=== PATIENT | male | born 1975 | race Caucasian/White ===

== ENCOUNTER 2017-11-07 13:14 | Inpatient (IN) | payer OTHER ==
[2017-11-07 17:00] VITALS: BMI 29.8
--- NOTE | 2017-11-07 21:24 | HP ---
CIWA Score - CIWA Score Nausea/Vomitin-Mild Nausea/No Vomiting Muscle Tremors: 4-Moderate,w/Arms Extend Anxiety: 4-Mod. Anxious/Guarded Agitation: 4-Moderately Restless Paroxysmal Sweats: 3 Orientation: 0-Oriented Tacttile Disturbances: 0-None Auditory Disturbances: 0-None Visual Disturbances: 0-None Headache: 0-None Present CIWA-Ar Total Score: 16 Admission ROS BHS - HPI Chief Complaint: SEEKING DETOX FRO ALCOHOLISM W/ C/O WITHDRAWAL SX'S Allergies/Adverse Reactions: Allergies Allergy/AdvReac Type Severity Reaction Status Date / Time No Known Allergies Allergy Verified 11/07/17 20:25 History of Present Illness: 42 Y.O. MALE WITH ALCOHOLISM HERE FOR DETOX WITH C/O WITHDRAWAL SX'S CIWA 16. CLIENT IS SELF REFERRED. KNOWN TO OTHER DETOX CENTERS. STATES LAST ADMISSION OVER A MONTH AGO. REPORTS LONGEST CLEAN TIME 6 MONTHS AGO. REPORTS HX/O WITHDRAWAL SEIZURES. LAST EPISODE 15 MONTHS AGO, [facility] OUT[facility]. DENIES C.P., SOB, AVH, PAST/PRESENT SI/HI. DENIES LEGALS PMHX- HX/O RLE DVT,GERD PSYCH- ANXIETY Exam Limitations: No Limitations - Ebola screening Have you traveled outside of the country in the last 21 days: No Have you had contact with anyone from an Ebola affected area: No Have you been sick,other than usual withdrawal symptoms: No Do you have a fever: No - Review of Systems Constitutional: Chills, Loss of Appetite, Night Sweats, Changes in sleep EENT: reports: No Symptoms Reported Respiratory: reports: No Symptoms reported Cardiac: reports: No Symptoms Reported GI: reports: Diarrhea, Nausea, Poor Appetite, Poor Fluid Intake : reports: No Symptoms Reported Musculoskeletal: reports: Joint Pain (BOTH KNEE CHRONIC) Integumentary: reports: Flushing, Sweating Neuro: reports: Seizure (ALCOHOL WITHDRAWAL) Endocrine: reports: No Symptoms Reported Hematology: reports: Blood Clots (HX/O RLE DVT) Psychiatric: reports: Anxious, Depressed Other Systems: Reviewed and Negative Patient History - Patient Medical History Hx Anemia: No Hx Asthma: No Hx Chronic Obstructive Pulmonary Disease (COPD): No Hx Cancer: No Hx Cardiac Disorders: No Hx Congestive Heart Failure: No Hx Hypertension: No Hx Hypercholesterolemia: No Hx Pacemaker: No HX Cerebrovascular Accident: No Hx Seizures: Yes (HX/O WITHDRAWAL SZ) Hx Dementia: No Hx Diabetes: No Hx Gastrointestinal Disorders: No Hx Liver Disease: No Hx Genitourinary Disorders: No Hx Sexually Transmitted Disorders: No Hx Renal Disease (ESRD): No Hx Thyroid Disease: No Hx Human Immunodeficiency Virus (HIV): No Hx Hepatitis C: No Hx Depression: Yes Hx Suicide Attempt: No Hx Bipolar Disorder: No Hx Schizophrenia: No Other Medical History: ANXIETY - Patient Surgical History Past Surgical History: No Hx Neurologic Surgery: No Hx Cataract Extraction: No Hx Cardiac Surgery: No Hx Lung Surgery: No Hx Breast Surgery: No Hx Breast Biopsy: No Hx Abdominal Surgery: No Hx Appendectomy: No Hx Cholecystectomy: No Hx Genitourinary Surgery: No Hx Section: No Hx Orthopedic Surgery: No Anesthesia Reaction: No - PPD History Previous Implant?: Yes Documented Results: Negative w/o proof Implanted On Prior R Admission?: No PPD to be Administered?: Yes - Smoking Cessation Smoking history: Current every day smoker Have you smoked in the past 12 months: Yes Aproximately how many cigarettes per day: 10 Cigars Per Day: 0 Hx Chewing Tobacco Use: No Initiated information on smoking cessation: Yes 'Breaking Loose' booklet given: 11/07/17 - Substance & Tx. History Hx Alcohol Use: Yes Hx Substance Use: Yes Substance Use Type: Alcohol Hx Substance Use Treatment: Yes (DOES NOT RECALL) - Substances Abused Alcohol Route: Oral Frequency: Daily Amount used: LIQUOR- 3 PINTS, BEER- 2 SIX PACK Age of first use: 15 Date of Last Use: 11/07/17 Family Disease History - Family Disease History Family Disease History: Other: Mother (BLODD CLOTTS) Admission Physical Exam S - Vital Signs Vital Signs: Vital Signs - 24 hr 11/07/17 16:57 Temperature 98.9 F Pulse Rate 101 H Respiratory 18 Rate Blood Pressure 155/100 - Physical General Appearance: Yes: Moderate Distress, Alcohol on Breath, Intoxicated, Tremorous, Irritable, Sweating, Anxious HEENTM: Yes: EOMI, Normocephalic, TENA, Pharynx Normal Respiratory: Yes: Chest Non-Tender, Lungs Clear, Normal Breath Sounds, No Respiratory Distress, No Accessory Muscle Use Neck: Yes: No masses,lesions,Nodules, Supple, Trachea in good position Breast: Yes: Breast Exam Deferred Cardiology: Yes: Regular Rhythm, S1, S2, Tachycardia Abdominal: Yes: Normal Bowel Sounds, Non Tender, Soft Genitourinary: Yes: Other (NO C/O) Back: Yes: Normal Inspection Musculoskeletal: Yes: full range of Motion, Gait Steady Extremities: Yes: Normal Range of Motion, Non-Tender, Tremors Neurological: Yes: Alert, Motor Strength 5/5, Depressed Affect Integumentary: Yes: Warm, Other (FLUSHED) Lymphatic: Yes: Within Normal Limits - Diagnostic (1) Alcohol dependence with uncomplicated withdrawal Current Visit: Yes Status: Acute (2) Nicotine dependence Current Visit: Yes Status: Chronic Qualifiers: Nicotine product type: cigarettes Substance use status: uncomplicated Qualified Code(s): F17.210 - Nicotine dependence, cigarettes, uncomplicated (3) Alcohol withdrawal seizure Current Visit: Yes Status: Suspected Comment: HISTORY (4) Substance induced mood disorder Current Visit: Yes Status: Suspected (5) At risk for dehydration due to poor fluid intake Current Visit: Yes Status: Acute Cleared for Admission [facility] - Detox or Rehab [facility] Level of Care: Medically Managed Detox Regimen/Protocol: [facility] for Rehab Admission: No [facility] Breath Alcohol Content Breath Alcohol Content: 0.193 Urine Drug Screen - Results Drug Screen Negative: No Urine Drug Screen Results: BZO-Benzodiazepines
[2017-11-07] MEDS ORDERED: IBUPROFEN 400 MG TABLET (FP) PO PRN (21:29)
[2017-11-07] MEDS ORDERED: LOPERAMIDE HCL 2 MG CAPSULE PO PRN (21:29)
[2017-11-07] MEDS ORDERED: MAGNESIUM CITRATE 300 ML BOTTLE PO PRN (21:29)
[2017-11-07] MEDS ORDERED: guaiFENesin/D-METHORPHAN HB 10 ML UNIT-DOSE CUPS PO PRN (21:29)
[2017-11-07] MEDS ORDERED: MAGNESIUM HYDROX 2400MG/30ML ORAL SUSPENSION 30 ML CUP PO PRN (21:29)
[2017-11-07] MEDS ORDERED: NICOTINE POLACRILEX 2 MG GUM BC PRN (21:29)
[2017-11-07] MEDS ORDERED: P-EPHED 60MG/TRIPROLIDI 2.5MG TABLET PO PRN (21:29)
[2017-11-07] MEDS ORDERED: MENTHOL/PHENOL 1 EACH UD MM PRN (21:29)
[2017-11-07] MEDS ORDERED: ACETAMINOPHEN 325 MG TABLET (FP) PO PRN (21:29)
[2017-11-07] MEDS ORDERED: hydrOXYzine PAMOATE 50 MG CAPSULE (FP) PO PRN (21:29)
[2017-11-07] MEDS ORDERED: cloNIDine HCL 0.1 MG TABLET PO PRN (21:41)
[2017-11-07] MEDS: chlordiazePOXIDE HCL 25 MG CAPSULE PO SCH (22:41)
[2017-11-07] MEDS: THIAMINE HCL 100 MG TABLET (FP) PO SCH (22:41)
[2017-11-07] MEDS: MELATONIN 5 MG TABLETS PO PRN (22:43)
[2017-11-08] MEDS: chlordiazePOXIDE HCL 25 MG CAPSULE PO SCH ×4 (06:31→22:06)
[2017-11-08 10:15] LABS: HEMOGLOBIN 14.1 GM/dL (11.7-16.9); MCH 30.2 pg (25.7-33.7); MCHC 33.5 g/dl (32.0-35.9); MEAN CELL VOLUME 90.2 fl (80-96); MEAN PLT VOLUME 10.7 fl (7.5-11.1); PLATELET COUNT 117 K/MM3 (134-434); RBC 4.66 M/mm3 (4.00-5.60); RDW 13.9 % (11.9-15.9); WHITE BLOOD COUNT 4.8 K/mm3 (4.0-10.0)
[2017-11-08] MEDS: NICOTINE 14 MG/24 HOURS TOPICAL PATCH TD SCH (10:18)
[2017-11-08] MEDS: PRENATAL VITAMINS W/ FOLIC ACID TABLET (FP) PO SCH (10:19)
[2017-11-08 10:30] LABS: CHLORIDE 106 mmol/L (98-107); POTASSIUM 4.2 mmol/L (3.5-5.1); SODIUM 145 mmol/L (136-145)
[2017-11-08 10:56] LABS: ALBUMIN 3.3 g/dl (3.4-5.0); ALK PHOS 111 U/L (45-117); ANION GAP 10 MMOL/L (8-16); BILIRUBIN,TOTAL 0.5 mg/dL (0.2-1); BLOOD UREA NITROGEN 13 mg/dL (7-18); CALCIUM 8.6 mg/dL (8.5-10.1); CO2 29 mmol/L (21-32); CREATININE 0.8 mg/dL (0.55-1.3); GLUCOSE,RANDOM 94 mg/dL (74-106); SGOT/AST 20 U/L (15-37); SGPT/ALT 23 U/L (13-61)
[2017-11-08] MEDS: chlordiazePOXIDE HCL 25 MG CAPSULE PO PRN (14:39)
--- NOTE | 2017-11-08 15:50 | PN ---
S CIWA - CIWA Score Nausea/Vomitin-Mild Nausea/No Vomiting Muscle Tremors: 4-Moderate,w/Arms Extend Anxiety: 1-Mildly Anxious Agitation: 1-Slight > Activity Paroxysmal Sweats: 1-Minimal Palms Moist Orientation: 0-Oriented Tacttile Disturbances: 0-None Auditory Disturbances: 0-None Visual Disturbances: 0-None Headache: 0-None Present CIWA-Ar Total Score: 8 BHS Progress Note (SOAP) Subjective: States still having shakes. Some nausea w/ diarrhea. States stools are watery brown. Feeling some anxiety and restlessness. Objective: A&O x 3. Abd S/NT/BS hyperactive. Tremors of hands noted uon extension. Facial perspiration present. Vital Signs 11/08/17 11/08/17 11/08/17 08:00 08:30 09:00 Temperature Pulse Rate 65 72 67 Respiratory 18 18 Rate Blood Pressure 11/08/17 11/08/17 11/08/17 09:14 09:30 10:00 Temperature 98.0 F Pulse Rate 68 69 70 Respiratory 18 18 18 Rate Blood Pressure 133/85 11/08/17 11/08/17 11/08/17 10:30 11:00 11:30 Temperature Pulse Rate 71 71 69 Respiratory 18 18 18 Rate Blood Pressure 11/08/17 11/08/17 11/08/17 12:00 12:30 13:00 Temperature Pulse Rate 78 80 79 Respiratory 18 16 16 Rate Blood Pressure 11/08/17 11/08/17 11/08/17 13:30 13:48 14:00 Temperature 97.8 F Pulse Rate 76 78 70 Respiratory 16 16 18 Rate Blood Pressure 131/82 11/08/17 11/08/17 11/08/17 14:30 15:00 15:30 Temperature Pulse Rate 74 72 71 Respiratory 18 18 Rate Blood Pressure Lab Results WBC 4.8 K/mm3 (4.0-10.0) 11/08/17 07:50 RBC 4.66 M/mm3 (4.00-5.60) 11/08/17 07:50 Hgb 14.1 GM/dL (11.7-16.9) 11/08/17 07:50 Hct 42.0 % (35.4-49) 11/08/17 07:50 MCV 90.2 fl (80-96) 11/08/17 07:50 MCHC 33.5 g/dl (32.0-35.9) 11/08/17 07:50 RDW 13.9 % (11.9-15.9) 11/08/17 07:50 Plt Count 117 K/MM3 (134-434) L 11/08/17 07:50 Sodium 145 mmol/L (136-145) 11/08/17 07:50 Potassium 4.2 mmol/L (3.5-5.1) 11/08/17 07:50 Chloride 106 mmol/L (98-107) 11/08/17 07:50 Carbon Dioxide 29 mmol/L (21-32) 11/08/17 07:50 Anion Gap 10 MMOL/L (8-16) 11/08/17 07:50 BUN 13 mg/dL (7-18) 11/08/17 07:50 Creatinine 0.8 mg/dL (0.55-1.3) 11/08/17 07:50 Random Glucose 94 mg/dL (74-106) 11/08/17 07:50 Calcium 8.6 mg/dL (8.5-10.1) 11/08/17 07:50 Labs reviewed. Assessment: Withdrawal symptoms Plan: Continue detox.
--- NOTE | 2017-11-08 16:45 | EKG ---
Test Reason : Blood Pressure : / mmHG Vent. Rate : 099 BPM Atrial Rate : 099 BPM P-R Int : 162 ms QRS Dur : 080 ms QT Int : 350 ms P-R-T Axes : 011 051 064 degrees QTc Int : 449 ms NORMAL SINUS RHYTHM NORMAL ECG NO PREVIOUS ECGS AVAILABLE Confirmed by Jase Julio ([id number]) on 11/08/2017 4:45:09 PM Referred By: Confirmed By:Jase Julio
--- NOTE | 2017-11-08 17:30 | CONSULT ---
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 Substance Abuse History: Confirmed by the patient in this interview.Details in current [facility] report : Smoking history: Current every day smoker. Have you smoked in the past 12 months: Yes. Aproximately how many cigarettes per day: 10. Cigars Per Day: 0. Hx Chewing Tobacco Use: No. Initiated information on smoking cessation: Yes. 'Breaking Loose' booklet given: 11/07/17. - Substance & Tx. History. Hx Alcohol Use: Yes. Hx Substance Use: Yes. Substance Use Type : Alcohol. Hx Substance Use Treatment: Yes (DOES NOT RECALL). - Substances Abused. Alcohol. Route: Oral. Frequency: Daily. Amount used: LIQUOR- 3 PINTS, BEER- 2 SIX PACK. Age of first use: 15. Date of Last Use: 11/07/17 Medical History: GERD,antecedent of withdrawal-related seizures and a history of DVT (deep vein thrombosis). 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 Physical/Sexual Abuse/Trauma History: Stressors : homelessness,estrangement from relatives,no support network,suicide of girlfriend, of mother (four years ago),unemployment,no income and addictions. Additional Comment: Urine Drug Screen Results: BZO-Benzodiazepines.Noted. Mental Status Exam - Mental Status Exam Alert and Oriented to: Time, Place, Person Cognitive Function: Good Patient Appearance: Well Groomed (obese,unshaven) Mood: Nervous, Withdrawn, Anxious Affect: Mood Congruent, Labile Patient Behavior: Inappropriate (uses profane language), Fatigued, Cooperative Speech Pattern: Clear Voice Loudness: Normal Thought Process: Intact, Goal Oriented Thought Disorder: Not Present Hallucinations: Denies Suicidal Ideation: Denies Homicidal Ideation: Denies Insight/Judgement: Poor Sleep: Poorly, Difficulty falling asleep Appetite: Good Muscle strength/Tone: Normal Gait/Station: Normal Psychiatric Findings - Problem List ([place] 1, 2,3) (1) Alcohol dependence with uncomplicated withdrawal Current Visit: Yes Status: Acute (2) Substance induced mood disorder Current Visit: Yes Status: Acute (3) Nicotine dependence Current Visit: Yes Status: Acute Qualifiers: Nicotine product type: cigarettes Substance use status: uncomplicated Qualified Code(s): F17.210 - Nicotine dependence, cigarettes, uncomplicated (4) Insomnia Current Visit: Yes Status: Acute - Initial Treatment Plan Initial Treatment Plan: Psychoeducation.Sleep hygiene.Detoxification in progress.Insomnia is addressed with melatonin 5 mg po hs prn (patient's request) .Side effects/benefits discussed with the patient.Agreement (verbal) : given.Observation.
[2017-11-08] MEDS: MAG HYDROX/AL HYDROX/SIMETH 30 ML UNIT-DOSE CUP PO PRN (19:22)
[2017-11-08] MEDS: MELATONIN 5 MG TABLETS PO PRN (22:06)
[2017-11-08] MEDS: THIAMINE HCL 100 MG TABLET (FP) PO SCH (22:06)
[2017-11-09] MEDS: chlordiazePOXIDE HCL 25 MG CAPSULE PO SCH ×3 (06:05→17:32)
[2017-11-09] MEDS: chlordiazePOXIDE HCL 25 MG CAPSULE PO PRN ×2 (08:22→12:46)
[2017-11-09] MEDS: NICOTINE 14 MG/24 HOURS TOPICAL PATCH TD SCH (10:27)
[2017-11-09] MEDS: PRENATAL VITAMINS W/ FOLIC ACID TABLET (FP) PO SCH (10:28)
--- NOTE | 2017-11-09 10:53 | PN ---
[facility] CIWA - CIWA Score Nausea/Vomitin (DIARRHEA) Muscle Tremors: 4-Moderate,w/Arms Extend Anxiety: 4-Mod. Anxious/Guarded Agitation: 3 Paroxysmal Sweats: 2 Orientation: 0-Oriented Tacttile Disturbances: 0-None Auditory Disturbances: 0-None Visual Disturbances: 0-None Headache: 0-None Present CIWA-Ar Total Score: 15 BHS Progress Note (SOAP) Subjective: PT C/O DIARRHEA,SWEATS, ANXIETY. Objective: 11/09/17 10:51 Vital Signs 11/09/17 11/09/17 11/09/17 03:30 06:58 09:22 Temperature 96.7 F L 96.2 F L Pulse Rate 60 74 Respiratory 18 18 18 Rate Blood Pressure 105/70 131/84 Laboratory Tests 11/08/17 11/08/17 11/08/17 07:50 07:50 07:50 WBC 4.8 RBC 4.66 Hgb 14.1 Hct 42.0 MCV 90.2 MCH 30.2 MCHC 33.5 RDW 13.9 Plt Count 117 L MPV 10.7 Sodium 145 Potassium 4.2 Chloride 106 Carbon Dioxide 29 Anion Gap 10 BUN 13 Creatinine 0.8 Creat Clearance w eGFR > 60 Random Glucose 94 Calcium 8.6 Total Bilirubin 0.5 AST 20 ALT 23 Alkaline Phosphatase 111 Total Protein 6.0 L Albumin 3.3 L RPR Titer Nonreactive Assessment: 11/09/17 10:51 WITHDRAWAL SX Plan: CONTINUE DETOX IMODIUM PRN; LOMOTIL IF NOT EFFECTIVE.
[2017-11-09] MEDS: THIAMINE HCL 100 MG TABLET (FP) PO SCH (22:13)
[2017-11-09] MEDS: chlordiazePOXIDE 5 MG CAPSULE PO SCH (22:13)
[2017-11-09] MEDS: MELATONIN 5 MG TABLETS PO PRN (22:14)
[2017-11-10 00:52] LABS: URINE APPEARANCE SLCLOUDY; URINE BILIRUBIN NEGATIVE (<2.0 mg/dL); URINE COLOR LTYELLOW; URINE GLUCOSE (UA) NEGATIVE (NEGATIVE); URINE KETONE NEGATIVE (NEGATIVE); URINE LEUK ESTERASE NEGATIVE (NEGATIVE); URINE NITRITE NEGATIVE (NEGATIVE); URINE PROTEIN NEGATIVE (NEGATIVE); URINE UROBILINOGEN NEGATIVE mg/dL (0.2-1.0)
[2017-11-10] MEDS: chlordiazePOXIDE 5 MG CAPSULE PO SCH (05:44)
[2017-11-10 06:15] VITALS: BP 111/64
[2017-11-10 10:03] VITALS: PULSE 61; TEMP 96.8
[2017-11-10] MEDS: PRENATAL VITAMINS W/ FOLIC ACID TABLET (FP) PO SCH (10:14)
[2017-11-10] MEDS: NICOTINE 14 MG/24 HOURS TOPICAL PATCH TD SCH (10:14)
[2017-11-10] MEDS: MAG HYDROX/AL HYDROX/SIMETH 30 ML UNIT-DOSE CUP PO PRN (10:15)
--- NOTE | 2017-11-10 10:24 | PN ---
[facility] Progress Note (SOAP) Subjective: DETOX PROCEEDING PER PROTOCOL. PT REFERRED TO [facility] PROGRAM AFTERCARE AND WILL FOLLOW UP THIS MORNING. PT REPORTS HE HAS NO PMD BUT UTILIZES ANY HOSPITAL CLOSE TO HIM/PROGRAMS HE ENGAGES IN. Objective: 11/10/17 10:22 Vital Signs 11/10/17 11/10/17 11/10/17 03:30 06:15 09:53 Temperature 97.2 F L 96.8 F L Pulse Rate 58 L 61 Respiratory 18 18 18 Rate Blood Pressure 111/64 Laboratory Tests 11/08/17 11/08/17 11/08/17 07:50 07:50 07:50 WBC 4.8 RBC 4.66 Hgb 14.1 Hct 42.0 MCV 90.2 MCH 30.2 MCHC 33.5 RDW 13.9 Plt Count 117 L MPV 10.7 Sodium 145 Potassium 4.2 Chloride 106 Carbon Dioxide 29 Anion Gap 10 BUN 13 Creatinine 0.8 Creat Clearance w eGFR > 60 Random Glucose 94 Calcium 8.6 Total Bilirubin 0.5 AST 20 ALT 23 Alkaline Phosphatase 111 Total Protein 6.0 L Albumin 3.3 L Urine Color Urine Appearance Urine pH Ur Specific [place] Urine Protein Urine Glucose (UA) Urine Ketones Urine Blood Urine Nitrite Urine Bilirubin Urine Urobilinogen Ur Leukocyte Esterase RPR Titer Nonreactive 11/10/17 00:30 WBC RBC Hgb Hct MCV MCH MCHC RDW Plt Count MPV Sodium Potassium Chloride Carbon Dioxide Anion Gap BUN Creatinine Creat Clearance w eGFR Random Glucose Calcium Total Bilirubin AST ALT Alkaline Phosphatase Total Protein Albumin Urine Color Ltyellow Urine Appearance Slcloudy Urine pH 8.0 Ur Specific [place] 1.011 Urine Protein Negative Urine Glucose (UA) Negative Urine Ketones Negative Urine Blood Negative Urine Nitrite Negative Urine Bilirubin Negative Urine Urobilinogen Negative Ur Leukocyte Esterase Negative RPR Titer Assessment: 11/10/17 10:22 MEDICALLY STABLE Plan: D/C PT TODAY FOLLOW UP AT [facility] TODAY FOR AFTERCARE.
--- NOTE | 2017-11-10 10:27 | DS ---
[facility] Detox Discharge Summary Admission Date: 11/07/17 Discharge Date: 11/10/17 - History Present History: Alcohol Dependence Additional Comments: DETOX COMPLETED. ALERT O X 3. NAD. Pertinent Past History: PLEASE SEE DX BELOW - Physical Exam Results Vital Signs: Vital Signs Temperature 96.8 F L 11/10/17 09:53 Pulse Rate 61 11/10/17 09:53 Respiratory Rate 18 11/10/17 09:53 Blood Pressure 111/64 11/10/17 06:15 O2 Sat by Pulse Oximetry (%) Pertinent Admission Physical Exam Findings: WITHDRAWAL SX Vital Signs 11/10/17 11/10/17 11/10/17 03:30 06:15 09:53 Temperature 97.2 F L 96.8 F L Pulse Rate 58 L 61 Respiratory 18 18 18 Rate Blood Pressure 111/64 Laboratory Tests 11/08/17 11/08/17 11/08/17 07:50 07:50 07:50 WBC 4.8 RBC 4.66 Hgb 14.1 Hct 42.0 MCV 90.2 MCH 30.2 MCHC 33.5 RDW 13.9 Plt Count 117 L MPV 10.7 Sodium 145 Potassium 4.2 Chloride 106 Carbon Dioxide 29 Anion Gap 10 BUN 13 Creatinine 0.8 Creat Clearance w eGFR > 60 Random Glucose 94 Calcium 8.6 Total Bilirubin 0.5 AST 20 ALT 23 Alkaline Phosphatase 111 Total Protein 6.0 L Albumin 3.3 L Urine Color Urine Appearance Urine pH Ur Specific [place] Urine Protein Urine Glucose (UA) Urine Ketones Urine Blood Urine Nitrite Urine Bilirubin Urine Urobilinogen Ur Leukocyte Esterase RPR Titer Nonreactive 11/10/17 00:30 WBC RBC Hgb Hct MCV MCH MCHC RDW Plt Count MPV Sodium Potassium Chloride Carbon Dioxide Anion Gap BUN Creatinine Creat Clearance w eGFR Random Glucose Calcium Total Bilirubin AST ALT Alkaline Phosphatase Total Protein Albumin Urine Color Ltyellow Urine Appearance Slcloudy Urine pH 8.0 Ur Specific [place] 1.011 Urine Protein Negative Urine Glucose (UA) Negative Urine Ketones Negative Urine Blood Negative Urine Nitrite Negative Urine Bilirubin Negative Urine Urobilinogen Negative Ur Leukocyte Esterase Negative RPR Titer - Treatment Hospital Course: Detox Protocol Followed, Detoxed Safely, Responded well, Discharged Condition Good, Rehab Referral Accepted Patient has Accepted a Rehab Referral to: [facility] - Medication Discharge Medications: Ambulatory Orders Gabapentin [Gralise] 600 mg PO TID 11/07/17 - Diagnosis (1) Alcohol dependence with uncomplicated withdrawal Current Visit: Yes Status: Acute (2) At risk for dehydration due to poor fluid intake Current Visit: Yes Status: Acute (3) Nicotine dependence Current Visit: Yes Status: Acute Qualifiers: Nicotine product type: cigarettes Substance use status: in withdrawal Qualified Code(s): F17.213 - Nicotine dependence, cigarettes, with withdrawal (4) Alcohol withdrawal seizure Current Visit: Yes Status: Suspected Qualifiers: Complication of substance-induced condition: with unspecified complication Qualified Code(s): F10.239 - Alcohol dependence with withdrawal, unspecified; R56.9 - Unspecified convulsions - AMA Did Patient Leave Against Medical Advice: No
[2017-11-10] MEDS ORDERED: chlordiazePOXIDE HCL 10 MG CAPSULE PO SCH ×2 (11:00→23:00)
== END 2017-11-10 11:38 | disposition home or self-care (01) | DRG 775 ==
LOC: YASAS 13:14 → Y3N 21:11
PROC: HZ2ZZZZ Detoxification Services for Substance Abuse Treatment (ICD-10-PCS; principal; 2017-11-07)
DX: F10.230 Alcohol dependence with withdrawal, uncomplicated (principal); F19.24 Other psychoactive substance dependence with psychoactive substance-induced mood disorder; F41.9 Anxiety disorder, unspecified; G47.00 Insomnia, unspecified; Z86.718 Personal history of other venous thrombosis and embolism; Z91.89 Other specified personal risk factors, not elsewhere classified; Z86.69 Personal history of other diseases of the nervous system and sense organs; Z59.0 Homelessness
CPT/HCPCS: 36415; 80053; 81003; 85027; 86593; 93005; 93010; J0735

== ENCOUNTER 2018-04-07 14:41 | Inpatient (IN) | payer OTHER ==
[2018-04-07 15:05] VITALS: BMI 28.8
--- NOTE | 2018-04-07 20:06 | HP ---
CIWA Score Nausea/Vomitin-Mild Nausea/No Vomiting Muscle Tremors: 4-Moderate,w/Arms Extend Anxiety: 6 Agitation: 4-Moderately Restless Paroxysmal Sweats: 4-Forehead w/Sweat Beads Orientation: 4Disoriented Place/Person Tacttile Disturbances: 0-None Auditory Disturbances: 0-None Visual Disturbances: 3-Moderate Sensitivity Headache: 0-None Present CIWA-Ar Total Score: 26 - Admission Criteria [facility]ASAS Guidelines: Admission for Medically Managed Detox: Requires at least one of the followin. CIWA greater than 12 2. Seizures within the past 24 hours 3. Delirium tremens within the past 24 hours 4. Hallucinations within the past 24 hours 5. Acute intervention needed for co occurring medical disorder 6. Acute intervention needed for co occurring psychiatric disorder 7. Severe withdrawal that cannot be handled at a lower level of care (continued vomiting, continued diarrhea, abnormal vital signs) requiring intravenous medication and/or fluids 8. Patient presents the following: CIWA greater than 12, Seizures, delirium tremens or hallucinations in the past 12 hours Admission Criteria Met: Admission criteria met Admission ROS [facility] - HPI Allergies/Adverse Reactions: Allergies Allergy/AdvReac Type Severity Reaction Status Date / Time No Known Allergies Allergy Verified 11/07/17 20:25 History of Present Illness: pt here requesting detox from etoh use . poor historian due to current intoxication . Previous visit at this facility October 2017 , when questioned about amount and frequency of use he reports " a lot " Oriented to self . Exam Limitations: Clinical Condition, Intoxication, Altered Mental Status (due to intoxication) - Ebola screening Have you traveled outside of the country in the last 21 days: No Have you had contact with anyone from an Ebola affected area: No Have you been sick,other than usual withdrawal symptoms: No Do you have a fever: No - Review of Systems Constitutional: See HPI EENT: reports: See HPI Respiratory: reports: See HPI Cardiac: reports: See HPI GI: reports: See HPI : reports: See HPI Musculoskeletal: reports: See HPI Integumentary: reports: See HPI Neuro: reports: Seizure, Weakness, Unsteady Gait Psychiatric: reports: Agitated, Anxious, Disorientated Patient History - Patient Medical History Hx Anemia: No Hx Asthma: No Hx Chronic Obstructive Pulmonary Disease (COPD): No Hx Cancer: No Hx Cardiac Disorders: No Hx Congestive Heart Failure: No Hx Hypertension: No Hx Hypercholesterolemia: No Hx Pacemaker: No HX Cerebrovascular Accident: No Hx Seizures: Yes (HX/O WITHDRAWAL SZ) Hx Dementia: No Hx Diabetes: No Hx Gastrointestinal Disorders: No Hx Liver Disease: No Hx Genitourinary Disorders: No Hx Sexually Transmitted Disorders: No Hx Renal Disease (ESRD): No Hx Thyroid Disease: No Hx Human Immunodeficiency Virus (HIV): No Hx Hepatitis C: No Hx Depression: Yes Hx Suicide Attempt: No Hx Bipolar Disorder: No Hx Schizophrenia: No - Patient Surgical History Past Surgical History: No Hx Neurologic Surgery: No Hx Cataract Extraction: No Hx Cardiac Surgery: No Hx Lung Surgery: No Hx Breast Surgery: No Hx Breast Biopsy: No Hx Abdominal Surgery: No Hx Appendectomy: No Hx Cholecystectomy: No Hx Genitourinary Surgery: No Hx Section: No Hx Orthopedic Surgery: No Anesthesia Reaction: No - PPD History Date: 11/09/17 - Smoking Cessation Smoking history: Current every day smoker Have you smoked in the past 12 months: Yes Aproximately how many cigarettes per day: 10 Cigars Per Day: 0 Hx Chewing Tobacco Use: No Initiated information on smoking cessation: No Family Disease History - Family Disease History Family Disease History: Other: Mother (BLOOD CLOTTS) Admission Physical Exam BHS - Vital Signs Vital Signs: Vital Signs - 24 hr 04/07/18 15:00 Pulse Rate 96 H Respiratory 20 Rate Blood Pressure 151/94 - Physical General Appearance: Yes: Disheveled, Intoxicated, Sweating, Anxious, Other ( disoriented) HEENTM: Yes: Hearing grossly Normal, Normocephalic, Normal Voice, Other ( difficulty following commands due to intoxication.) Respiratory: Yes: Chest Non-Tender, Lungs Clear, Normal Breath Sounds Neck: Yes: No masses,lesions,Nodules, Trachea in good position Cardiology: Yes: Regular Rhythm, Regular Rate, S1, S2, Tachycardia Abdominal: Yes: Normal Bowel Sounds, Non Tender, Soft Genitourinary: Yes: Within Normal Limits Back: Yes: Normal Inspection Musculoskeletal: Yes: Muscle weakness, Other (unsteady gait) Extremities: Yes: Normal Capillary Refill, Non-Tender, Other Neurological: Yes: Motor Strength 5/5, Disoriented Integumentary: Yes: Normal Color - Diagnostic (1) Alcohol dependence with acute alcoholic intoxication with complication Current Visit: Yes Status: Acute (2) At risk for dehydration due to poor fluid intake Current Visit: No Status: Acute (3) Nicotine dependence Current Visit: No Status: Chronic Qualifiers: Nicotine product type: cigarettes (4) Alcohol withdrawal seizure Current Visit: No Status: Suspected Qualifiers: Complication of substance-induced condition: with unspecified complication Qualified Code(s): F10.239 - Alcohol dependence with withdrawal, unspecified; R56.9 - Unspecified convulsions Comment: HISTORY BHS Breath Alcohol Content Breath Alcohol Content: 0.167 Urine Drug Screen - Results Drug Screen Negative: Yes Inpatient Rehab Admission - Rehab Decision to Admit Inpatient rehab admission?: No
[2018-04-07] MEDS ORDERED: ACETAMINOPHEN 325 MG TABLET (FP) PO PRN (20:20)
[2018-04-07] MEDS ORDERED: guaiFENesin/D-METHORPHAN HB 10 ML UNIT-DOSE CUPS PO PRN (20:20)
[2018-04-07] MEDS ORDERED: IBUPROFEN 400 MG TABLET (FP) PO PRN (20:20)
[2018-04-07] MEDS ORDERED: MENTHOL/PHENOL 1 EACH UD MM PRN (20:20)
[2018-04-07] MEDS ORDERED: MAGNESIUM HYDROX 2400MG/30ML ORAL SUSPENSION 30 ML CUP PO PRN (20:20)
[2018-04-07] MEDS ORDERED: P-EPHED 60MG/TRIPROLIDI 2.5MG TABLET PO PRN (20:20)
[2018-04-07] MEDS ORDERED: chlordiazePOXIDE HCL 25 MG CAPSULE PO PRN (20:20)
[2018-04-07] MEDS ORDERED: MAG HYDROX/AL HYDROX/SIMETH 30 ML UNIT-DOSE CUP PO PRN (20:20)
[2018-04-07] MEDS ORDERED: NICOTINE POLACRILEX 2 MG GUM BC PRN (20:20)
[2018-04-07] MEDS ORDERED: MAGNESIUM CITRATE 300 ML BOTTLE PO PRN (20:20)
[2018-04-07] MEDS ORDERED: MELATONIN 5 MG TABLETS PO PRN (22:00)
--- NOTE | 2018-04-08 01:28 | PN ---
[facility] Progress Note Note: Patient was admitted earlier by Dr Tanner. He was reported to have fallen three times at the security post while he was being searched prior to going to his unit. The Nursing Roller Setter, Ms. Bueno reports that she notified Dr. Tanner, who instructed her to call the ambulance and send the patient to ER. Patient was subsequently transferred to ER by the nursing cloth mercerizing supervisor.
[2018-04-08] MEDS: chlordiazePOXIDE HCL 25 MG CAPSULE PO SCH ×6 (05:40→22:19)
[2018-04-08] MEDS: THIAMINE HCL 100 MG TABLET (FP) PO SCH ×2 (05:40→22:19)
--- NOTE | 2018-04-08 05:54 | PN ---
[facility] Progress Note Note: At about 4.10AM 1 was notified by the nurse that the patient came back from emergency room via ambulance. The system was down throughout the Hospital to document and initiate orders at the time patient came back. Patient is drowsy and sleeping at this time. Fall protocol #2 initiated.
[2018-04-08] MEDS: PRENATAL VITAMINS W/ FOLIC ACID TABLET (FP) PO SCH (10:21)
[2018-04-08 11:24] LABS: ALBUMIN 3.4 g/dl (3.4-5.0); ALK PHOS 111 U/L (45-117); ANION GAP 8 MMOL/L (8-16); BILIRUBIN,TOTAL 0.5 mg/dL (0.2-1); BLOOD UREA NITROGEN 17 mg/dL (7-18); CALCIUM 7.8 mg/dL (8.5-10.1); CHLORIDE 109 mmol/L (98-107); CO2 27 mmol/L (21-32); CREATININE 0.9 mg/dL (0.55-1.3); GLUCOSE,RANDOM 80 mg/dL (74-106); POTASSIUM 4.4 mmol/L (3.5-5.1); SGOT/AST 47 U/L (15-37); SGPT/ALT 49 U/L (13-61); SODIUM 144 mmol/L (136-145); TOT PROT 6.3 g/dl (6.4-8.2)
[2018-04-08 11:30] LABS: HEMATOCRIT 45.2 % (35.4-49); HEMOGLOBIN 15.6 GM/dL (11.7-16.9); MCH 32.1 pg (25.7-33.7); MCHC 34.6 g/dl (32.0-35.9); MEAN CELL VOLUME 92.8 fl (80-96); PLATELET COUNT 133 K/MM3 (134-434); RBC 4.87 M/mm3 (4.00-5.60); RDW 15.2 % (11.9-15.9); WHITE BLOOD COUNT 7.3 K/mm3 (4.0-10.0)
[2018-04-08] MEDS: chlordiazePOXIDE HCL 25 MG CAPSULE PO PRN ×2 (12:26→19:11)
--- NOTE | 2018-04-08 14:28 | PN ---
[facility] CIWA - CIWA Score Nausea/Vomitin-No Nausea/No Vomiting Muscle Tremors: 2 Anxiety: 4-Mod. Anxious/Guarded Agitation: 0-Normal Activity Paroxysmal Sweats: 3 Orientation: 2-Disoriented Date<2 days Tacttile Disturbances: 0-None Auditory Disturbances: 2-Mild Harshness/Frighten Visual Disturbances: 2-Mild Sensitivity Headache: 0-None Present CIWA-Ar Total Score: 15 S Progress Note (SOAP) Subjective: Hot / Cold Sensations, Sweating, Diarrhea, Tremors. Objective: PATIENT A & O X 2 (UNCERTAIN ABOUT CURRENT DAY / DATE). PATIENT OBSERVED AMBULATING ON UNIT. IN NO ACUTE DISTRESS. PATIENT WAS SEEN AND EVALUATED AT [facility] FOR FALL. CT SCAN NOTED TO BE NEGATIVE BY ER MEDICAL PROVIDER (ACCORDING TO NOTE BY NADER ALEXANDRE MD) AND PATIENT D/C'D TO RETURN TO [facility] TO BEGIN DETOX. 04/08/18 14:26 Vital Signs Temperature 98.2 F 04/08/18 12:40 Pulse Rate 84 04/08/18 13:03 Respiratory Rate 20 04/08/18 13:03 Blood Pressure 134/70 04/08/18 12:40 O2 Sat by Pulse Oximetry (%) Laboratory Tests 04/08/18 04/08/18 04/08/18 07:45 07:45 07:45 WBC 7.3 RBC 4.87 Hgb 15.6 Hct 45.2 MCV 92.8 MCH 32.1 MCHC 34.6 RDW 15.2 Plt Count 133 L D MPV 11.0 Sodium 144 Potassium 4.4 Chloride 109 H Carbon Dioxide 27 Anion Gap 8 BUN 17 Creatinine 0.9 Creat Clearance w eGFR > 60 Random Glucose 80 Calcium 7.8 L Total Bilirubin 0.5 AST 47 H ALT 49 Alkaline Phosphatase 111 Total Protein 6.3 L Albumin 3.4 RPR Titer Nonreactive LABS NOTED. 04/08/18 14:29 Assessment: 04/08/18 14:27 WITHDRAWAL SYMPTOMS. THROMBOCYTOPENIA. Plan: CONTINUE DETOX. INCREASE DAILY PO FLUID INTAKE. PRN IMMODIUM PO FOR DIARRHEA.
[2018-04-08] MEDS ORDERED: chlordiazePOXIDE HCL 25 MG CAPSULE PO SCH (23:00)
[2018-04-09] MEDS: chlordiazePOXIDE HCL 25 MG CAPSULE PO SCH ×2 (06:00→10:30)
[2018-04-09] MEDS: PRENATAL VITAMINS W/ FOLIC ACID TABLET (FP) PO SCH (10:30)
[2018-04-09 13:41] VITALS: BP 144/89; PULSE 71; TEMP 96.7
[2018-04-09] MEDS: chlordiazePOXIDE HCL 25 MG CAPSULE PO PRN (14:15)
--- NOTE | 2018-04-09 14:23 | PN ---
S CIWA - CIWA Score Nausea/Vomitin-No Nausea/No Vomiting Muscle Tremors: 3 Anxiety: 2 Agitation: 2 Paroxysmal Sweats: 1-Minimal Palms Moist Orientation: 1-Uncertain about Date Tacttile Disturbances: 0-None Auditory Disturbances: 0-None Visual Disturbances: 0-None Headache: 2-Mild CIWA-Ar Total Score: 11 BHS Progress Note (SOAP) Subjective: denies headache, denies dizziness denies nausea denies vomiting denies pain tremor sweating patient reported that he is taking neurontin for depression last dose "weeks" ago patient can not provide the name of the pharmacy nor the provider who prescribe neurontin for him hold neurontin at the present time psychiatric referral due to history of depression with self destructive behavior by history Objective: 04/09/18 14:26 Vital Signs Temperature 96.7 F L 04/09/18 13:40 Pulse Rate 71 04/09/18 13:40 Respiratory Rate 18 04/09/18 13:40 Blood Pressure 144/89 04/09/18 13:40 O2 Sat by Pulse Oximetry (%) Laboratory Last Values WBC 7.3 K/mm3 (4.0-10.0) 04/08/18 07:45 RBC 4.87 M/mm3 (4.00-5.60) 04/08/18 07:45 Hgb 15.6 GM/dL (11.7-16.9) 04/08/18 07:45 Hct 45.2 % (35.4-49) 04/08/18 07:45 MCV 92.8 fl (80-96) 04/08/18 07:45 MCH 32.1 pg (25.7-33.7) 04/08/18 07:45 MCHC 34.6 g/dl (32.0-35.9) 04/08/18 07:45 RDW 15.2 % (11.9-15.9) 04/08/18 07:45 Plt Count 133 K/MM3 (134-434) L D 04/08/18 07:45 MPV 11.0 fl (7.5-11.1) 04/08/18 07:45 Sodium 144 mmol/L (136-145) 04/08/18 07:45 Potassium 4.4 mmol/L (3.5-5.1) 04/08/18 07:45 Chloride 109 mmol/L (98-107) H 04/08/18 07:45 Carbon Dioxide 27 mmol/L (21-32) 04/08/18 07:45 Anion Gap 8 MMOL/L (8-16) 04/08/18 07:45 BUN 17 mg/dL (7-18) 04/08/18 07:45 Creatinine 0.9 mg/dL (0.55-1.3) 04/08/18 07:45 Creat Clearance w eGFR > 60 (>60) 04/08/18 07:45 Random Glucose 80 mg/dL (74-106) 04/08/18 07:45 Calcium 7.8 mg/dL (8.5-10.1) L 04/08/18 07:45 Total Bilirubin 0.5 mg/dL (0.2-1) 04/08/18 07:45 AST 47 U/L (15-37) H 04/08/18 07:45 ALT 49 U/L (13-61) 04/08/18 07:45 Alkaline Phosphatase 111 U/L (45-117) 04/08/18 07:45 Total Protein 6.3 g/dl (6.4-8.2) L 04/08/18 07:45 Albumin 3.4 g/dl (3.4-5.0) 04/08/18 07:45 RPR Titer Nonreactive (NONREACTIVE) 04/08/18 07:45 lab noted low CA++ Assessment: 04/09/18 14:30 withdrawal sx fall precaution hypocalcemia Plan: continue detox begin oscal
[2018-04-09] MEDS ORDERED: CALCIUM 250MG/VIT-D 125 UNITS 1 COMBO TABLET PO SCH (14:27)
--- NOTE | 2018-04-09 16:00 | DS ---
[facility] Detox Discharge Summary Admission Date: 04/07/18 Discharge Date: 04/09/18 - History Present History: Alcohol Dependence Additional Comments: 42 years old male admitted on 04/07/18 for alcohol withdrawal stabilization insists to leave the detox unit that he preferred return to work on 04/11/18 preferred return home and prepare for work today patient had lunch and showered and feeling better patient is alert no acute distress denies suicidal ideation - Physical Exam Results Vital Signs: Vital Signs Temperature 96.7 F L 04/09/18 13:40 Pulse Rate 71 04/09/18 13:40 Respiratory Rate 18 04/09/18 13:40 Blood Pressure 144/89 04/09/18 13:40 O2 Sat by Pulse Oximetry (%) Pertinent Admission Physical Exam Findings: alcohol withdrawal sx Laboratory Last Values WBC 7.3 K/mm3 (4.0-10.0) 04/08/18 07:45 RBC 4.87 M/mm3 (4.00-5.60) 04/08/18 07:45 Hgb 15.6 GM/dL (11.7-16.9) 04/08/18 07:45 Hct 45.2 % (35.4-49) 04/08/18 07:45 MCV 92.8 fl (80-96) 04/08/18 07:45 MCH 32.1 pg (25.7-33.7) 04/08/18 07:45 MCHC 34.6 g/dl (32.0-35.9) 04/08/18 07:45 RDW 15.2 % (11.9-15.9) 04/08/18 07:45 Plt Count 133 K/MM3 (134-434) L D 04/08/18 07:45 MPV 11.0 fl (7.5-11.1) 04/08/18 07:45 Sodium 144 mmol/L (136-145) 04/08/18 07:45 Potassium 4.4 mmol/L (3.5-5.1) 04/08/18 07:45 Chloride 109 mmol/L (98-107) H 04/08/18 07:45 Carbon Dioxide 27 mmol/L (21-32) 04/08/18 07:45 Anion Gap 8 MMOL/L (8-16) 04/08/18 07:45 BUN 17 mg/dL (7-18) 04/08/18 07:45 Creatinine 0.9 mg/dL (0.55-1.3) 04/08/18 07:45 Creat Clearance w eGFR > 60 (>60) 04/08/18 07:45 Random Glucose 80 mg/dL (74-106) 04/08/18 07:45 Calcium 7.8 mg/dL (8.5-10.1) L 04/08/18 07:45 Total Bilirubin 0.5 mg/dL (0.2-1) 04/08/18 07:45 AST 47 U/L (15-37) H 04/08/18 07:45 ALT 49 U/L (13-61) 04/08/18 07:45 Alkaline Phosphatase 111 U/L (45-117) 04/08/18 07:45 Total Protein 6.3 g/dl (6.4-8.2) L 04/08/18 07:45 Albumin 3.4 g/dl (3.4-5.0) 04/08/18 07:45 RPR Titer Nonreactive (NONREACTIVE) 04/08/18 07:45 lab noted calcium rich food - Treatment Hospital Course: Detox Protocol Followed, Responded well Patient has Accepted a Rehab Referral to: [facility] community self help group - Medication Discharge Medications: Ambulatory Orders Gabapentin [Gralise] 600 mg PO TID 11/07/17 - Diagnosis (1) Alcohol dependence with uncomplicated withdrawal Status: Acute (2) Substance induced mood disorder Status: Suspected (3) Nicotine dependence Status: Acute Qualifiers: Nicotine product type: cigarettes Substance use status: in withdrawal Qualified Code(s): F17.213 - Nicotine dependence, cigarettes, with withdrawal - AMA Did Patient Leave Against Medical Advice: Yes
[2018-04-09] MEDS ORDERED: chlordiazePOXIDE 5 MG CAPSULE PO SCH (23:00)
[2018-04-10] MEDS ORDERED: chlordiazePOXIDE 5 MG CAPSULE PO SCH (05:00)
[2018-04-10] MEDS ORDERED: chlordiazePOXIDE HCL 10 MG CAPSULE PO SCH (23:00)
[2018-04-11] MEDS ORDERED: chlordiazePOXIDE HCL 10 MG CAPSULE PO SCH (05:00)
== END 2018-04-09 15:14 | disposition left against medical advice (07) | DRG 770 ==
LOC: YASAS 14:41 → Y3N 19:48
PROVIDERS: ADMIT Surgery; ATTEND Surgery
PROC: HZ2ZZZZ Detoxification Services for Substance Abuse Treatment (ICD-10-PCS; principal; 2018-04-07)
DX: F10.230 Alcohol dependence with withdrawal, uncomplicated (principal); F10.229 Alcohol dependence with intoxication, unspecified; F19.24 Other psychoactive substance dependence with psychoactive substance-induced mood disorder; E83.51 Hypocalcemia; D69.6 Thrombocytopenia, unspecified; R63.8 Other symptoms and signs concerning food and fluid intake; Z86.69 Personal history of other diseases of the nervous system and sense organs; W18.39XA Other fall on same level, initial encounter; Z91.81 History of falling; Y93.89 Activity, other specified; Y92.238 Other place in hospital as the place of occurrence of the external cause
CPT/HCPCS: 36415; 70450-TC; 71045-TC-FY; 80053; 80307; 82550; 82553; 83735; 84484; 85025; 85027; 86593; 93005; 93010; 96374; 96376; 99282-25

== ENCOUNTER 2018-04-07 22:55 | Emergency (ER) | payer OTHER ==
[2018-04-07] MEDS ORDERED: LORazepam 2 MG/ML SDV VIAL ONE (23:38)
--- NOTE | 2018-04-07 23:59 | PDOC ---
Attending Attestation - HPI HPI: The patient is a 42 year old male, with a significant PMH of alcohol abuse, substance abuse, and withdrawal seizures, who presents to the emergency department today from [facility] via EMS for concern for head contusion s/p fall. Patient is intoxicated, with a CARLITO measured at 167. He fell earlier today , and was sent over for a head CT. Patient admits to drinking approximately two hours ago. He does note that does use cocaine, but has not in the past 48 hours. Patient denies any pain or symptoms at this time, and is demanding to eat. The patient denies chest pain, shortness of breath, headache and dizziness. Denies fever, chills, nausea, vomit, diarrhea and constipation. Denies dysuria, frequency, urgency and hematuria. Allergies: NKA Past surgical history: Social history: No reported PCP: Dr. Ute Maradiaga 04/08/18 01:06 - Physicial Exam PE: GENERAL: +Intoxicated. Awake, alert, and fully oriented, in no acute distress. Speaking in full sentences, answering questions, aware of where he is and who he is speaking to. HEAD: No signs of trauma EYES: PERRLA, EOMI, sclera anicteric, conjunctiva clear ENT: Auricles normal inspection, hearing grossly normal, nares patent, oropharynx clear without exudates. Moist mucosa NECK: Normal ROM, supple, no lymphadenopathy, JVD, or masses LUNGS: Breath sounds equal, clear to auscultation bilaterally. No wheezes, and no crackles HEART: Regular rate and rhythm, normal S1 and S2, no murmurs, rubs or gallops ABDOMEN: Soft, nontender, normoactive bowel sounds. No guarding, no rebound. No masses EXTREMITIES: Normal range of motion, no edema. Normal reflexes. No clubbing or cyanosis. No cords, erythema, or tenderness NEUROLOGICAL: +Unsteady gait secondary to intoxication. No tremors. Normal reflexes. Cranial nerves II through XII grossly intact. Normal speech. SKIN: Warm, Dry, normal turgor, no rashes or lesions noted. 04/08/18 01:08 - Medical Decision Making Documentation prepared by ALEXIS Quinones, acting as medical record coder for Mary Ayers MD. 04/08/18 01:08 <Clara Castro - Last Filed: 04/08/18 01:06> - Resident Resident Name: Artemio Hale - ED Attending Attestation I have performed the following: I have examined & evaluated the patient, The case was reviewed & discussed with the resident, I agree w/resident's findings & plan - Medical Decision Making 04/08/18 00:17 Pt received 4mg ativan IVP in the ER. He has no tremors in the ER; he is not sweating. He is oriented to place and person. He is not answering time quesitons. He is calm and speaking to us clearly. He has slight slurring of speech. He drinks alcohol. He sometimes sniffs cocaine, but has not sniffed in a long time. 04/08/18 02:15 Pt's alcohol level is 380s 04/08/18 04:49 Pt was hydrated with 1L NSS; given ativan 4mg IV and librium 100mg. CT head is normal 04/08/18 22:53 Pt was cleared medically and he was sent back to [facility] for detox. I spoke to the PA/MACHINE SPECIALIST there. <Mary Ayers - Last Filed: 04/08/18 22:53>
[2018-04-08] MEDS ORDERED: LORazepam 2 MG/ML SDV VIAL ONE (00:02)
[2018-04-08] MEDS ORDERED: chlordiazePOXIDE HCL 25 MG CAPSULE PO ONE (00:14)
[2018-04-08] MEDS ORDERED: chlordiazePOXIDE HCL 25 MG CAPSULE ONE (00:22)
[2018-04-08 00:42] LABS: BASO % 0.7 % (0-2.0); EOS % 2.7 % (0-4.5); HEMATOCRIT 51.9 % (35.4-49); HEMOGLOBIN 17.7 GM/dL (11.7-16.9); LYMPH % 32.8 % (8-40); MCH 31.6 pg (25.7-33.7); MCHC 34.2 g/dl (32.0-35.9); MEAN CELL VOLUME 92.4 fl (80-96); MEAN PLT VOLUME 10.9 fl (7.5-11.1); MONO % 8.6 % (3.8-10.2); NEUT % 55.2 % (42.8-82.8); PLATELET COUNT 180 K/MM3 (134-434); RBC 5.61 M/mm3 (4.00-5.60); WHITE BLOOD COUNT 9.8 K/mm3 (4.0-10.0)
--- NOTE | 2018-04-08 00:53 | PDOC ---
History of Present Illness - General Stated Complaint: Alcohol intoxication Time Seen by Provider: 04/07/18 23:34 History Source: Patient Exam Limitations: No Limitations - History of Present Illness Initial Comments: 04/08/18 00:48 Patient is a 42M with history of alcohol abuse and withdrawal seizure [facility] for evaluation after falling multiple times. Patient fell because of an unsteady gait due to intoxication. Patient is intoxicated and not able to give proper history, is also agitated but redirectable. Asking for a sandwich. Denies pain. Denies fevers, chills, nauea, vomiting. Denies chest pain and abdominal pain. Past History - Past Medical History Allergies/Adverse Reactions: Allergies Allergy/AdvReac Type Severity Reaction Status Date / Time No Known Allergies Allergy Verified 04/07/18 21:06 Home Medications: Ambulatory Orders Gabapentin [Gralise] 600 mg PO TID 11/07/17 Anemia: No Asthma: No Cancer: No Cardiac Disorders: No CVA: No COPD: No CHF: No Dementia: No Diabetes: No GI Disorders: No Disorders: No HTN: No Hypercholesterolemia: No Kidney Stones: No Liver Disease: No Seizures: Yes (HX/O WITHDRAWAL SZ) Thyroid Disease: No - Surgical History Abdominal Surgery: No Appendectomy: No Cardiac Surgery: No Cholecystectomy: No Lung Surgery: No Neurologic Surgery: No Orthopedic Surgery: No - Reproductive History Testicular Surgery: No - Suicide/Smoking/Psychosocial Hx Smoking History: Current every day smoker Have you smoked in the past 12 months: Yes Number of Cigarettes Smoked Daily: 10 Cigars Per Day: 0 'Breaking Loose' booklet given: 11/07/17 Hx Alcohol Use: Yes Drug/Substance Use Hx: Yes Substance Use Type: Alcohol Hx Substance Use Treatment: No Review of Systems - Review of Systems Comments:: 04/08/18 00:50 GENERAL/CONSTITUTIONAL: No fever or chills. No weakness. HEAD, EYES, EARS, NOSE AND THROAT: No change in vision. No sore throat. CARDIOVASCULAR: No chest pain or shortness of breath RESPIRATORY: No cough, wheezing, or hemoptysis. GASTROINTESTINAL: No nausea, vomiting, diarrhea or constipation. GENITOURINARY: No dysuria, frequency, or change in urination. MUSCULOSKELETAL: No joint or muscle swelling or pain. No neck or back pain. SKIN: No rash NEUROLOGIC: No headache, vertigo, loss of consciousness, or change in strength/ sensation. ENDOCRINE: No increased thirst. No abnormal weight change *Physical Exam - Physical Exam Comments: 04/08/18 00:51 GENERAL: Awake, alert, and fully oriented, in no acute distress, intoxicated HEAD: No signs of trauma, normocephalic, atraumatic EYES: PERRLA, EOMI, sclera anicteric, conjunctiva clear ENT: Auricles normal inspection, hearing grossly normal, nares patent, oropharynx clear without exudates. Moist mucosa NECK: Normal ROM, supple, no lymphadenopathy, JVD, or masses LUNGS: No distress, speaks full sentences, clear to auscultation bilaterally HEART: Regular rate and rhythm, normal S1 and S2, no murmurs, rubs or gallops, peripheral pulses normal and equal bilaterally. ABDOMEN: Soft, nontender, normoactive bowel sounds. No guarding, no rebound. No masses EXTREMITIES: Normal inspection, Normal range of motion, no edema. No clubbing or cyanosis. NEUROLOGICAL: Cranial nerves II through XII grossly intact. Slurred speech, unsteady gait, no focal sensorimotor deficits SKIN: Warm, Dry, normal turgor, no rashes or lesions noted. ED Treatment Course - LABORATORY CBC & Chemistry Diagram: 04/08/18 00:07 04/08/18 00:07 - ADDITIONAL ORDERS Additional order review: 04/08/18 00:07 RBC 5.61 H MCV 92.4 MCHC 34.2 RDW 15.0 MPV 10.9 Neutrophils % 55.2 Lymphocytes % 32.8 Monocytes % 8.6 Eosinophils % 2.7 Basophils % 0.7 - RADIOLOGY Radiology Studies Ordered: Category Date Time Status HEAD CT WITHOUT CONTRAST [CT] Stat CT Scan 04/08/18 00:34 Ordered CHEST X-RAY PORTABLE* [RAD] Stat Radiology 04/08/18 00:30 Taken - Medications Given in the ED: ED Medications Discontinued Medications Generic Name Dose Route Start Last Admin Trade Name Freq PRN Reason Stop Dose Admin Chlordiazepoxide HCl 100 mg 04/08/18 00:14 04/08/18 00:25 Librium - PO 04/08/18 00:15 100 mg ONCE ONE Administration Lorazepam 2 mg 04/07/18 23:50 04/08/18 00:06 Ativan Injection - IVPUSH 04/07/18 23:51 2 mg ONCE ONE Administration Lorazepam 2 mg 04/07/18 23:54 04/08/18 00:06 Ativan Injection - IVPUSH 04/07/18 23:55 2 mg ONCE ONE Administration Medical Decision Making - Medical Decision Making 04/08/18 00:51 Patient is 42M here today with alcohol intoxication and ground level fall. Vitals normal and stable. Walking around ED, no pain. Will evaluate with head ct. Initial labs sent given unknown history as patient was sent to ED. Will follow, likely [facility]. Given ativan 2mg x2 for agitation. 04/08/18 03:[address] normal. Tolerating PO. CBC normal. CMP reassuring. Etoh elevated. Will discharge to [facility]. *DC/Admit/Observation/Transfer Diagnosis at time of Disposition: Alcohol dependence with uncomplicated withdrawal - Discharge Dispostion Disposition: HOME Condition at time of disposition: Good Decision to Admit order: No - Referrals Referrals: Ute Flores [Primary Care Provider] - - Patient Instructions Printed Discharge Instructions: DI for Alcohol Abuse Additional Instructions: Please go to [facility] for management of your alcohol withdrawal. - Post Discharge Activity
[2018-04-08] MEDS ORDERED: SODIUM CHLORIDE 0.9% 500 ML INFUS.BAG IV ONE (01:08)
[2018-04-08 01:14] LABS: ALBUMIN 4.1 g/dl (3.4-5.0); ALK PHOS 131 U/L (45-117); ANION GAP 11 MMOL/L (8-16); BILIRUBIN,TOTAL 0.5 mg/dL (0.2-1); BLOOD UREA NITROGEN 12 mg/dL (7-18); CALCIUM 8.2 mg/dL (8.5-10.1); CHLORIDE 104 mmol/L (98-107); CO2 25 mmol/L (21-32); GLUCOSE,RANDOM 80 mg/dL (74-106); MAGNESIUM 2.4 mg/dL (1.8-2.4); POTASSIUM 4.1 mmol/L (3.5-5.1); SGOT/AST 46 U/L (15-37); SGPT/ALT 51 U/L (13-61); SODIUM 140 mmol/L (136-145); TOT PROT 7.4 g/dl (6.4-8.2)
[2018-04-08 01:27] VITALS: BP 146/78; PULSE 88; TEMP 98.6; BMI 26.4
--- NOTE | 2018-04-08 13:00 | EKG ---
Test Reason : Blood Pressure : / mmHG Vent. Rate : 091 BPM Atrial Rate : 091 BPM P-R Int : 168 ms QRS Dur : 086 ms QT Int : 358 ms P-R-T Axes : 006 048 056 degrees QTc Int : 440 ms NORMAL SINUS RHYTHM NONSPECIFIC ST ABNORMALITY WHEN COMPARED WITH ECG OF 07-NOV-2017 22:30, NO SIGNIFICANT CHANGE WAS FOUND Confirmed by SHAUNA BOLES MD ([id number]) on 04/08/2018 12:59:39 PM Referred By: Confirmed By:SHAUNA BOLES MD
== END 2018-04-08 03:58 | disposition home or self-care (01) ==
LOC: JER 22:55
PROC: 3E033NZ Introduction of Analgesics, Hypnotics, Sedatives into Peripheral Vein, Percutaneous Approach (ICD-10-PCS; principal; 2018-04-07)
PROC: 3E033NZ Introduction of Analgesics, Hypnotics, Sedatives into Peripheral Vein, Percutaneous Approach (ICD-10-PCS; 2018-04-07)
DX: F10.220 Alcohol dependence with intoxication, uncomplicated (principal); Y90.6 Blood alcohol level of 120-199 mg/100 ml; R29.6 Repeated falls; R26.81 Unsteadiness on feet
CPT/HCPCS: 70450-TC; 71045-TC-FY; 80053; 80307; 82550; 82553; 83735; 84484; 85025; 93005; 93010; 96374; 96376; 99282-25

== ENCOUNTER 2018-05-12 14:47 | Inpatient (IN) | payer OTHER ==
[2018-05-12 16:21] VITALS: BMI 29.7
--- NOTE | 2018-05-12 17:29 | HP ---
CIWA Score Nausea/Vomitin-No Nausea/No Vomiting Muscle Tremors: 4-Moderate,w/Arms Extend Anxiety: 4-Mod. Anxious/Guarded Agitation: 4-Moderately Restless Paroxysmal Sweats: 4-Forehead w/Sweat Beads Orientation: 0-Oriented Tacttile Disturbances: 0-None Auditory Disturbances: 0-None Visual Disturbances: 0-None Headache: 0-None Present CIWA-Ar Total Score: 16 - Admission Criteria OASAS Guidelines: Admission for Medically Managed Detox: Requires at least one of the followin. CIWA greater than 12 2. Seizures within the past 24 hours 3. Delirium tremens within the past 24 hours 4. Hallucinations within the past 24 hours 5. Acute intervention needed for co occurring medical disorder 6. Acute intervention needed for co occurring psychiatric disorder 7. Severe withdrawal that cannot be handled at a lower level of care (continued vomiting, continued diarrhea, abnormal vital signs) requiring intravenous medication and/or fluids 8. Admission ROS S - HPI Allergies/Adverse Reactions: Allergies Allergy/AdvReac Type Severity Reaction Status Date / Time No Known Allergies Allergy Verified 04/07/18 21:06 History of Present Illness: pt here requesting detox from etoh use , reports 1 case of beer/day x 2 years , latest use today , current symptoms as above, denies seizures, + blackouts , + tremors , reports he starts drinking " early " in the day , several prior detox . tobacco : 1 ppd . PMHX : denies PSHx : denies Psych ; denies , Denies current SI / HI . Exam Limitations: Clinical Condition, Intoxication - Ebola screening Have you traveled outside of the country in the last 21 days: No Have you had contact with anyone from an Ebola affected area: No Have you been sick,other than usual withdrawal symptoms: No - Review of Systems Constitutional: See HPI EENT: reports: See HPI Respiratory: reports: No Symptoms reported Cardiac: reports: No Symptoms Reported GI: reports: No Symptoms Reported : reports: No Symptoms Reported Musculoskeletal: reports: No Symptoms Reported Integumentary: reports: No Symptoms Reported Neuro: reports: See HPI Psychiatric: reports: Orientated x3, Agitated, Anxious Patient History - Patient Medical History Hx Anemia: No Hx Asthma: No Hx Chronic Obstructive Pulmonary Disease (COPD): No Hx Cancer: No Hx Cardiac Disorders: No Hx Congestive Heart Failure: No Hx Hypertension: No Hx Hypercholesterolemia: No Hx Pacemaker: No HX Cerebrovascular Accident: No Hx Seizures: Yes (HX/O WITHDRAWAL SZ) Hx Dementia: No Hx Diabetes: No Hx Gastrointestinal Disorders: No Hx Liver Disease: No Hx Genitourinary Disorders: No Hx Sexually Transmitted Disorders: No Hx Renal Disease (ESRD): No Hx Thyroid Disease: No Hx Human Immunodeficiency Virus (HIV): No Hx Hepatitis C: No Hx Depression: Yes Hx Suicide Attempt: No Hx Bipolar Disorder: No Hx Schizophrenia: No - Patient Surgical History Past Surgical History: No Hx Neurologic Surgery: No Hx Cataract Extraction: No Hx Cardiac Surgery: No Hx Lung Surgery: No Hx Breast Surgery: No Hx Breast Biopsy: No Hx Abdominal Surgery: No Hx Appendectomy: No Hx Cholecystectomy: No Hx Genitourinary Surgery: No Hx Section: No Hx Orthopedic Surgery: No Anesthesia Reaction: No - PPD History Date: 11/09/17 - Smoking Cessation Smoking history: Current every day smoker Have you smoked in the past 12 months: Yes Aproximately how many cigarettes per day: 10 Cigars Per Day: 0 Hx Chewing Tobacco Use: No Initiated information on smoking cessation: No - Substances Abused Alcohol Route: Oral Frequency: Daily Amount used: liqour- 2 pints, beer- 2 six pack Age of first use: 12 Date of Last Use: 05/12/18 Family Disease History - Family Disease History Family Disease History: Other: Mother (BLOOD CLOTTS) Admission Physical Exam S - Vital Signs Vital Signs: Vital Signs - 24 hr 05/12/18 16:19 Temperature 99.0 F Pulse Rate 98 H Respiratory 18 Rate Blood Pressure 147/89 - Physical General Appearance: Yes: Severe Distress, Intoxicated, Tremorous, Sweating, Anxious HEENTM: Yes: EOMI, Hearing grossly Normal, Normocephalic, Normal Voice Respiratory: Yes: Chest Non-Tender, Lungs Clear, Normal Breath Sounds Neck: Yes: No masses,lesions,Nodules, Trachea in good position Cardiology: Yes: Regular Rhythm, Regular Rate, S1, S2, Tachycardia Abdominal: Yes: Non Tender, Soft Back: Yes: Normal Inspection Musculoskeletal: Yes: Other (staggering gait) Extremities: Yes: Tremors Neurological: Yes: Motor Strength 5/5, Confused, Depressed Affect Integumentary: Yes: Normal Color - Diagnostic (1) Alcohol dependence with acute alcoholic intoxication with complication Current Visit: Yes Status: Acute (2) Nicotine dependence Current Visit: No Status: Chronic Qualifiers: Nicotine product type: cigarettes BHS Breath Alcohol Content Breath Alcohol Content: 0.248 Urine Drug Screen - Results Drug Screen Negative: Yes Inpatient Rehab Admission - Rehab Decision to Admit Inpatient rehab admission?: No
[2018-05-12] MEDS ORDERED: NICOTINE POLACRILEX 2 MG GUM BUC PRN (17:36)
[2018-05-12] MEDS ORDERED: DICYCLOMINE HCL 10 MG CAPSULE PO PRN (17:36)
[2018-05-12] MEDS ORDERED: MELATONIN 5 MG TABLETS PO PRN (17:36)
[2018-05-12] MEDS ORDERED: MAG HYDROX/AL HYDROX/SIMETH 30 ML UNIT-DOSE CUP PO PRN (17:36)
[2018-05-12] MEDS ORDERED: MAGNESIUM HYDROX 2400MG/30ML ORAL SUSPENSION 30 ML CUP PO PRN (17:36)
[2018-05-12] MEDS ORDERED: IBUPROFEN 400 MG TABLET (FP) PO PRN (17:36)
[2018-05-12] MEDS ORDERED: ACETAMINOPHEN 325 MG TABLET (FP) PO PRN ×2 (17:36)
[2018-05-12] MEDS ORDERED: MAGNESIUM CITRATE 300 ML BOTTLE PO PRN (17:36)
[2018-05-12] MEDS ORDERED: MENTHOL/PHENOL 1 EACH UD MM PRN (17:36)
[2018-05-12] MEDS: chlordiazePOXIDE HCL 25 MG CAPSULE PO PRN (19:01)
[2018-05-12] MEDS: chlordiazePOXIDE HCL 25 MG CAPSULE PO SCH (22:28)
[2018-05-12] MEDS: THIAMINE HCL 100 MG TABLET (FP) PO SCH (22:29)
[2018-05-13] MEDS: chlordiazePOXIDE HCL 25 MG CAPSULE PO SCH ×4 (05:37→22:00)
[2018-05-13] MEDS: PRENATAL VITAMINS W/ FOLIC ACID TABLET (FP) PO SCH (10:48)
[2018-05-13 10:56] LABS: ALBUMIN 3.2 g/dl (3.4-5.0); ALK PHOS 96 U/L (45-117); ANION GAP 3 MMOL/L (8-16); BILIRUBIN,TOTAL 0.8 mg/dL (0.2-1); BLOOD UREA NITROGEN 14 mg/dL (7-18); CALCIUM 8.2 mg/dL (8.5-10.1); CHLORIDE 107 mmol/L (98-107); CO2 29 mmol/L (21-32); CREATININE 0.7 mg/dL (0.55-1.3); GLUCOSE,RANDOM 95 mg/dL (74-106); POTASSIUM 4.1 mmol/L (3.5-5.1); SGOT/AST 114 U/L (15-37); SGPT/ALT 101 U/L (13-61); SODIUM 139 mmol/L (136-145); TOT PROT 5.9 g/dl (6.4-8.2)
[2018-05-13 11:07] LABS: HEMATOCRIT 43.6 % (35.4-49); HEMOGLOBIN 14.9 GM/dL (11.7-16.9); MCHC 34.2 g/dl (32.0-35.9); MEAN CELL VOLUME 93.6 fl (80-96); MEAN PLT VOLUME 10.4 fl (7.5-11.1); PLATELET COUNT 96 K/MM3 (134-434); RBC 4.66 M/mm3 (4.00-5.60); RDW 14.8 % (11.9-15.9); WHITE BLOOD COUNT 4.5 K/mm3 (4.0-10.0)
[2018-05-13] MEDS: chlordiazePOXIDE HCL 25 MG CAPSULE PO PRN (13:25)
--- NOTE | 2018-05-13 13:56 | PN ---
[facility] CIWA - CIWA Score Nausea/Vomitin-No Nausea/No Vomiting Muscle Tremors: 3 Anxiety: 4-Mod. Anxious/Guarded Agitation: 4-Moderately Restless Paroxysmal Sweats: 3 Orientation: 0-Oriented Tacttile Disturbances: 0-None Auditory Disturbances: 0-None Visual Disturbances: 0-None Headache: 0-None Present CIWA-Ar Total Score: 14 BHS Progress Note (SOAP) Subjective: sweats low back pain tremors requesting to leave a day earlier Objective: 05/13/18 13:53 A & O x 3 gait steady anxious slight tremors Vital Signs Temperature 97.5 F L 05/13/18 13:26 Pulse Rate 86 05/13/18 13:26 Respiratory Rate 18 05/13/18 13:26 Blood Pressure 131/95 05/13/18 13:26 O2 Sat by Pulse Oximetry (%) Laboratory Last Values WBC 4.5 K/mm3 (4.0-10.0) 05/13/18 07:30 RBC 4.66 M/mm3 (4.00-5.60) 05/13/18 07:30 Hgb 14.9 GM/dL (11.7-16.9) 05/13/18 07:30 Hct 43.6 % (35.4-49) 05/13/18 07:30 MCV 93.6 fl (80-96) 05/13/18 07:30 MCH 32.0 pg (25.7-33.7) 05/13/18 07:30 MCHC 34.2 g/dl (32.0-35.9) 05/13/18 07:30 RDW 14.8 % (11.9-15.9) 05/13/18 07:30 Plt Count 96 K/MM3 (134-434) L D 05/13/18 07:30 MPV 10.4 fl (7.5-11.1) 05/13/18 07:30 Sodium 139 mmol/L (136-145) 05/13/18 07:30 Potassium 4.1 mmol/L (3.5-5.1) 05/13/18 07:30 Chloride 107 mmol/L (98-107) 05/13/18 07:30 Carbon Dioxide 29 mmol/L (21-32) 05/13/18 07:30 Anion Gap 3 MMOL/L (8-16) L 05/13/18 07:30 BUN 14 mg/dL (7-18) 05/13/18 07:30 Creatinine 0.7 mg/dL (0.55-1.3) 05/13/18 07:30 Creat Clearance w eGFR 123.67 (>60) 05/13/18 07:30 Random Glucose 95 mg/dL (74-106) 05/13/18 07:30 Calcium 8.2 mg/dL (8.5-10.1) L 05/13/18 07:30 Total Bilirubin 0.8 mg/dL (0.2-1) 05/13/18 07:30 AST 114 U/L (15-37) H 05/13/18 07:30 ALT 101 U/L (13-61) H 05/13/18 07:30 Alkaline Phosphatase 96 U/L (45-117) 05/13/18 07:30 Total Protein 5.9 g/dl (6.4-8.2) L 05/13/18 07:30 Albumin 3.2 g/dl (3.4-5.0) L 05/13/18 07:30 low calcium 05/13/18 13:59 Assessment: 05/13/18 13:55 withdrawal sx Plan: continue detox Calcium supplement lidocaine patch for low back pain
[2018-05-13] MEDS: hydrOXYzine PAMOATE 50 MG CAPSULE (FP) PO PRN ×2 (14:32→22:02)
[2018-05-13] MEDS: CALCIUM 250MG/VIT-D 125 UNITS 1 COMBO TABLET PO SCH (14:32)
[2018-05-13] MEDS: LIDOCAINE 5% TOPICAL PATCH TP SCH (14:32)
[2018-05-13] MEDS: NICOTINE 14 MG/24 HOURS TOPICAL PATCH TD SCH (14:36)
[2018-05-13] MEDS ORDERED: LIDOCAINE PATCH REMOVAL MC SCH (22:00)
[2018-05-13] MEDS: THIAMINE HCL 100 MG TABLET (FP) PO SCH (22:00)
[2018-05-14] MEDS: chlordiazePOXIDE HCL 25 MG CAPSULE PO SCH ×2 (05:51→10:17)
[2018-05-14] MEDS: CALCIUM 250MG/VIT-D 125 UNITS 1 COMBO TABLET PO SCH (10:17)
[2018-05-14] MEDS: PRENATAL VITAMINS W/ FOLIC ACID TABLET (FP) PO SCH (10:17)
[2018-05-14] MEDS: NICOTINE 14 MG/24 HOURS TOPICAL PATCH TD SCH (10:17)
[2018-05-14] MEDS: LIDOCAINE 5% TOPICAL PATCH TP SCH (10:18)
[2018-05-14] MEDS: chlordiazePOXIDE HCL 25 MG CAPSULE PO PRN (12:44)
[2018-05-14 13:08] VITALS: BP 135/86; PULSE 68; TEMP 97.3
--- NOTE | 2018-05-14 14:21 | DS ---
[facility] Detox Discharge Summary Admission Date: 05/12/18 Discharge Date: 05/14/18 - History Present History: Alcohol Dependence Additional Comments: Patient decided to leave AMA despite encouragement from staff to complete detox. Patient instructed to call [phone] CONNIE if withdrawal symptoms or feeling sick and to see his PCP within 3 days. Patient left in stable condition. Pertinent Past History: Alcohol dependence Nicotine dependence Seizure disorder Depression - Physical Exam Results Vital Signs: Vital Signs Temperature 97.3 F L 05/14/18 13:07 Pulse Rate 68 05/14/18 13:07 Respiratory Rate 18 05/14/18 13:07 Blood Pressure 135/86 05/14/18 13:07 O2 Sat by Pulse Oximetry (%) Pertinent Admission Physical Exam Findings: Withdrawal symptoms Laboratory Tests 05/13/18 05/13/18 07:30 07:30 WBC 4.5 RBC 4.66 Hgb 14.9 Hct 43.6 MCV 93.6 MCH 32.0 MCHC 34.2 RDW 14.8 Plt Count 96 L D MPV 10.4 Sodium 139 Potassium 4.1 Chloride 107 Carbon Dioxide 29 Anion Gap 3 L BUN 14 Creatinine 0.7 Creat Clearance w eGFR 123.67 Random Glucose 95 Calcium 8.2 L Total Bilirubin 0.8 AST 114 H ALT 101 H Alkaline Phosphatase 96 Total Protein 5.9 L Albumin 3.2 L Labs reviewed: plt 96, elevated AST/ALT, Ca 8.2; could be r/t alcohol dependence ; instructed to see PCP in 3 days - Medication Discharge Medications: Ambulatory Orders Gabapentin [Gralise] 600 mg PO TID 11/07/17 - Diagnosis (1) Alcohol related seizure Status: Chronic (2) Depression Status: Chronic (3) Elevated LFTs Status: Acute (4) Hypocalcemia Status: Acute (5) Alcohol dependence with uncomplicated withdrawal Status: Acute (6) Thrombocytopenia Status: Acute (7) Nicotine dependence Status: Chronic Qualifiers: Nicotine product type: cigarettes - AMA Did Patient Leave Against Medical Advice: Yes (Instructed to call 911 if feeling sick/withdrawal symptoms)
[2018-05-14] MEDS ORDERED: chlordiazePOXIDE HCL 10 MG CAPSULE PO SCH (23:00)
[2018-05-14] MEDS ORDERED: chlordiazePOXIDE HCL 10 MG CAPSULE PO PRN (23:00)
[2018-05-15] MEDS ORDERED: chlordiazePOXIDE HCL 10 MG CAPSULE PO SCH (23:00)
== END 2018-05-14 13:40 | disposition left against medical advice (07) | DRG 770 ==
LOC: YASAS 14:47 → Y6N 17:55
PROVIDERS: ADMIT Surgery; ATTEND Surgery
PROC: HZ2ZZZZ Detoxification Services for Substance Abuse Treatment (ICD-10-PCS; principal; 2018-05-12)
DX: F10.230 Alcohol dependence with withdrawal, uncomplicated (principal); F17.213 Nicotine dependence, cigarettes, with withdrawal; F32.9 Major depressive disorder, single episode, unspecified; E83.51 Hypocalcemia; G40.509 Epileptic seizures related to external causes, not intractable, without status epilepticus; D69.6 Thrombocytopenia, unspecified; R94.5 Abnormal results of liver function studies; R74.8 Abnormal levels of other serum enzymes; M54.5 Low back pain
CPT/HCPCS: 36415; 80053; 85027

== ENCOUNTER 2018-08-19 18:15 | Inpatient (IN) | payer SELFPAY ==
[2018-08-19 22:35] VITALS: BMI 29.1
--- NOTE | 2018-08-19 23:16 | HP ---
CIWA Score Nausea/Vomitin-No Nausea/No Vomiting Muscle Tremors: 2 Anxiety: 4-Mod. Anxious/Guarded Agitation: 1-Slight > Activity Paroxysmal Sweats: 3 Orientation: 2-Disoriented Date<2 days Tacttile Disturbances: 0-None Auditory Disturbances: 0-None Visual Disturbances: 0-None Headache: 0-None Present CIWA-Ar Total Score: 12 - Admission Criteria OAS Guidelines: Admission for Medically Managed Detox: Requires at least one of the followin. CIWA greater than 12 2. Seizures within the past 24 hours 3. Delirium tremens within the past 24 hours 4. Hallucinations within the past 24 hours 5. Acute intervention needed for co occurring medical disorder 6. Acute intervention needed for co occurring psychiatric disorder 7. Severe withdrawal that cannot be handled at a lower level of care (continued vomiting, continued diarrhea, abnormal vital signs) requiring intravenous medication and/or fluids 8. Patient presents the following: CIWA greater than 12 Admission Criteria Met: Admission criteria met Admission ROS [facility] Chief Complaint: seking detox for c/o withdrawal sx's. Allergies/Adverse Reactions: Allergies Allergy/AdvReac Type Severity Reaction Status Date / Time No Known Allergies Allergy Verified 08/19/18 22:29 History of Present Illness: 43 Y.O. MALE WITH HX/O ALCOHOLISM AND cocaine DEPENDENCE HERE FOR DETOX. CLIENT IS SELF REFERRED HE IS KNOWN TO THIS PROGRAM. PRESENTS WITH WITHDRAWAL SX'S. CIWA 12. REPORTS LONGEST CLEAN TIME 6 MONTHS. MOST RECENT 40 DAYS RELAPSING 1 WEEK AGO. DENIES HX/O DRUG OVERDOSE, SZ D/O. DOMICILED, EMPLOYED, DENIES LEGALS utox + opi. client denies use.reports he took a "pill" earlier to help with his withdrawal sxs' Exam Limitations: No Limitations - Ebola screening Have you traveled outside of the country in the last 21 days: No Have you had contact with anyone from an Ebola affected area: No Have you been sick,other than usual withdrawal symptoms: No Do you have a fever: No - Review of Systems Constitutional: Chills, Loss of Appetite, Night Sweats, Changes in sleep EENT: reports: No Symptoms Reported Respiratory: reports: No Symptoms reported Cardiac: reports: No Symptoms Reported GI: reports: Poor Appetite, Poor Fluid Intake, Other (he[place]burn) : reports: No Symptoms Reported Musculoskeletal: reports: No Symptoms Reported Integumentary: reports: Flushing, Sweating Neuro: reports: Seizure (WITHDRAWAL SZ), Weakness (generalized) Endocrine: reports: No Symptoms Reported Hematology: reports: Blood Clots (rle 3 years ago) Psychiatric: reports: Orientated x3, Agitated, Anxious (RESTLESS), Depressed ( denies si) Other Systems: Reviewed and Negative Patient History - Patient Medical History Hx Anemia: No Hx Asthma: No Hx Chronic Obstructive Pulmonary Disease (COPD): No Hx Cancer: No Hx Cardiac Disorders: No Hx Congestive Heart Failure: No Hx Hypertension: No Hx Hypercholesterolemia: No Hx Pacemaker: No HX Cerebrovascular Accident: No Hx Seizures: Yes (HX/O WITHDRAWAL SZ) Hx Dementia: No Hx Diabetes: No Hx Gastrointestinal Disorders: No Hx Liver Disease: No Hx Genitourinary Disorders: No Hx Sexually Transmitted Disorders: No Hx Renal Disease (ESRD): No Hx Thyroid Disease: No Hx Human Immunodeficiency Virus (HIV): No Hx Hepatitis C: No Hx Depression: Yes Hx Suicide Attempt: No Hx Bipolar Disorder: No Hx Schizophrenia: No Other Medical History: hx/o rle throMbus - Patient Surgical History Past Surgical History: No Hx Neurologic Surgery: No Hx Cataract Extraction: No Hx Cardiac Surgery: No Hx Lung Surgery: No Hx Breast Surgery: No Hx Breast Biopsy: No Hx Abdominal Surgery: No Hx Appendectomy: No Hx Cholecystectomy: No Hx Genitourinary Surgery: No Hx Section: No Hx Orthopedic Surgery: No Anesthesia Reaction: No - PPD History Previous Implant?: Yes Documented Results: Negative w/proof Implanted On Prior [facility] Admission?: Yes Date: 11/09/17 Results: 0mm PPD to be Administered?: No - Smoking Cessation Smoking history: Current every day smoker Have you smoked in the past 12 months: Yes Aproximately how many cigarettes per day: 10 Cigars Per Day: 0 Hx Chewing Tobacco Use: No Initiated information on smoking cessation: Yes 'Breaking Loose' booklet given: 08/19/18 - Substance & Tx. History Hx Alcohol Use: Yes Hx Substance Use: Yes Substance Use Type: Alcohol, Cocaine Hx Substance Use [facility]: [facility] - Substances abused Alcohol Substance route: Oral Frequency: Daily Amount used: 3 PINTS VODKA Age of first use: 13 Date of last use: 08/19/18 Cocaine Other (specify): SNIFF Frequency: Daily Amount used: $40 Age of first use: 21 Date of last use: 08/18/18 Family Disease History - Family Disease History Family Disease History: Other: Mother (BLOOD CLOTTS) Admission Physical Exam [facility] - Vital Signs Vital Signs: Vital Signs - 24 hr 08/19/18 22:27 Pulse Rate 95 H Respiratory 18 Rate Blood Pressure 135/93 - Physical General Appearance: Yes: Tremorous (felt), Irritable HEENTM: Yes: EOMI, Normocephalic, Normal Voice, TENA, Pharynx Normal, Other ( dry mucus membranes) Respiratory: Yes: Chest Non-Tender, Lungs Clear, Normal Breath Sounds, No Respiratory Distress, No Accessory Muscle Use Neck: Yes: No masses,lesions,Nodules, Supple, Trachea in good position Breast: Yes: Breast Exam Deferred Cardiology: Yes: Regular Rhythm, S1, S2, Tachycardia Abdominal: Yes: Normal Bowel Sounds, Non Tender, Soft Genitourinary: Yes: Within Normal Limits Back: Yes: Normal Inspection Musculoskeletal: Yes: full range of Motion, Gait Steady Extremities: Yes: Normal Range of Motion, Non-Tender, Tremors (felt) Neurological: Yes: Alert, Motor Strength 5/5, Depressed Affect Integumentary: Yes: Clammy (cool), Moist Lymphatic: Yes: Within Normal Limits - Diagnostic (1) Alcohol dependence with uncomplicated withdrawal Status: Acute (2) At risk for dehydration due to poor fluid intake Status: Acute (3) Depression Status: Chronic Qualifiers: Depression Type: unspecified Qualified Code(s): F32.9 - Major depressive disorder, single episode, unspecified (4) Nicotine dependence Status: Chronic Qualifiers: Nicotine product type: cigarettes Substance use status: uncomplicated Qualified Code(s): F17.210 - Nicotine dependence, cigarettes, uncomplicated (5) Substance induced mood disorder Status: Suspected (6) Cocaine abuse, uncomplicated Status: Acute Cleared for Admission [facility] - Detox or Rehab [facility] Level of Care: Medically Managed Detox Regimen/Protocol: Librium Claeared for Rehab Admission: No Breathalyzer - Breathalyzer Breathalyzer: 0.195 Urine Drug Screen - Results Drug screen NEGATIVE: No Urine drug screen results: ABELINO-Cocaine, MOP-Opiates Inpatient Rehab Admission - Rehab Decision to Admit Inpatient rehab admission?: No
[2018-08-19] MEDS ORDERED: DICYCLOMINE HCL 10 MG CAPSULE PO PRN (23:25)
[2018-08-19] MEDS ORDERED: hydrOXYzine PAMOATE 25 MG CAPSULE (FP) PO PRN (23:25)
[2018-08-19] MEDS ORDERED: ACETAMINOPHEN 325 MG TABLET (FP) PO PRN ×2 (23:25)
[2018-08-19] MEDS ORDERED: MAG HYDROX/AL HYDROX/SIMETH 30 ML UNIT-DOSE CUP PO PRN (23:25)
[2018-08-19] MEDS ORDERED: P-EPHED 60MG/TRIPROLIDI 2.5MG TABLET PO PRN (23:25)
[2018-08-19] MEDS ORDERED: IBUPROFEN 400 MG TABLET (FP) PO PRN (23:25)
[2018-08-19] MEDS ORDERED: METHOCARBAMOL 500 MG TABLET PO PRN (23:25)
[2018-08-19] MEDS ORDERED: MELATONIN 5 MG TABLETS PO PRN (23:25)
[2018-08-19] MEDS ORDERED: MAGNESIUM CITRATE 300 ML BOTTLE PO PRN (23:25)
[2018-08-19] MEDS ORDERED: BISMUTH SUBSALICYLATE 524 MG/30 ML UD PO PRN (23:25)
[2018-08-19] MEDS ORDERED: NICOTINE POLACRILEX 2 MG GUM BUC PRN (23:25)
[2018-08-19] MEDS ORDERED: ONDANSETRON *ODT* 4 MG TABLET SL PRN (23:25)
[2018-08-19] MEDS ORDERED: MAGNESIUM HYDROX 2400MG/30ML ORAL SUSPENSION 30 ML CUP PO PRN (23:25)
[2018-08-19] MEDS ORDERED: MENTHOL/PHENOL 1 EACH UD MM PRN (23:25)
[2018-08-19] MEDS ORDERED: guaiFENesin 200 MG/10 ML 10 ML UNIT-DOSE CUPS PO PRN (23:25)
[2018-08-19] MEDS ORDERED: chlordiazePOXIDE HCL 25 MG CAPSULE PO PRN (23:28)
[2018-08-20] MEDS: chlordiazePOXIDE HCL 25 MG CAPSULE PO SCH ×4 (00:55→17:27)
[2018-08-20 09:32] LABS: ALBUMIN 3.6 g/dl (3.4-5.0); BILIRUBIN,TOTAL 0.5 mg/dL (0.2-1); BLOOD UREA NITROGEN 12.7 mg/dL (7-18); CALCIUM 8.5 mg/dL (8.5-10.1); CREATININE 0.8 mg/dL (0.55-1.3); POTASSIUM 3.9 mmol/L (3.5-5.1); TOT PROT 6.4 g/dl (6.4-8.2)
[2018-08-20 09:44] LABS: HEMATOCRIT 44.1 % (35.4-49); HEMOGLOBIN 14.9 GM/dL (11.7-16.9); MCH 31.1 pg (25.7-33.7); MCHC 33.7 g/dl (32.0-35.9); MEAN CELL VOLUME 92.2 fl (80-96); MEAN PLT VOLUME 10.1 fl (7.5-11.1); RBC 4.78 M/mm3 (4.00-5.60); RDW 13.8 % (11.9-15.9); WHITE BLOOD COUNT 4.4 K/mm3 (4.0-10.0)
[2018-08-20] MEDS ORDERED: NICOTINE 21 MG/24 HOURS TOPICAL PATCH TD SCH (10:00)
[2018-08-20] MEDS ORDERED: PRENATAL VITAMINS W/ FOLIC ACID TABLET (FP) PO SCH (10:00)
[2018-08-20 10:11] LABS: PLATELET COUNT 134 K/MM3 (134-434)
[2018-08-20 10:46] LABS: HYALINE CASTS 4 /lpf (0-8); PH,URINE 7.5 (5.0-8.0); URINE APPEARANCE CLEAR; URINE BACTERIA 3.5 /hpf (NEGATIVE); URINE BILIRUBIN NEGATIVE (NEGATIVE); URINE COLOR YELLOW; URINE GLUCOSE (UA) NEGATIVE (NEGATIVE); URINE KETONE TRACE (NEGATIVE); URINE LEUK ESTERASE NEGATIVE (NEGATIVE); URINE NITRITE NEGATIVE (NEGATIVE); URINE PROTEIN 1+ (NEGATIVE); URINE RBC 1 /hpf (0-4); URINE WBC 1 /hpf (0-5)
--- NOTE | 2018-08-20 14:11 | CONSULT ---
[facility] Psychiatric Consult - Data Date of interview: 08/20/18 Admission source: Self-referred Identifying data: Mr Brewer is a 43 years old single Caucadian male, employed as air technician, domiciled seeking detox treatment for alcohol and cocaine Substance Abuse History: Reports history of alcohol and cocaine use. Refer to addiction counselor's summary for further information Medical History: Significant GERD,antecedent of withdrawal-related seizures and a history of DVT (deep vein thrombosis). Psychiatric History: Patient denies previous psychiatric hospitalization or suicidal attempt. However, reports that he was diagnosed with anxiety disorder in the past. He also reports taking Wellbutrin and Gabapentin in the past. Reportdely, he received most of his psychiatric treatment in detox/rehab setting. At present, reports feeling anxious and sleeping poorly. Requests to be ordered Gabapentin Physical/Sexual Abuse/Trauma History: Denies history of emotional, physical or sexual abuse as well as DV relationship Additional Comment: Denies criminal history Mental Status Exam - Mental Status Exam Alert and Oriented to: Time, Place, Person Cognitive Function: Fair Patient Appearance: Disheveled Mood: Anxious Affect: Appropriate Patient Behavior: Cooperative Speech Pattern: Clear Voice Loudness: Normal Thought Process: Intact, Goal Oriented Thought Disorder: Not Present Hallucinations: Denies Suicidal Ideation: Denies Homicidal Ideation: Denies Insight/Judgement: Poor Sleep: Poorly Appetite: Poor Muscle strength/Tone: Normal Gait/Station: Normal Psychiatric Findings - Problem List ([place] 1, 2,3) (1) Substance-induced anxiety disorder Current Visit: Yes Status: Acute (2) Substance-induced sleep disorder Current Visit: Yes Status: Acute (3) Alcohol dependence with uncomplicated withdrawal Current Visit: Yes Status: Acute (4) Cocaine dependence Current Visit: Yes Status: Acute (5) Nicotine dependence Current Visit: Yes Status: Chronic Qualifiers: Nicotine product type: cigarettes Substance use status: uncomplicated Qualified Code(s): F17.210 - Nicotine dependence, cigarettes, uncomplicated (6) Alcohol related seizure Current Visit: Yes Status: Resolved Comment: history of - Initial Treatment Plan Initial Treatment Plan: 1) Start Gabapentin 300 mg po TID. 2) Continue inpatient detoxification
[2018-08-20 14:29] VITALS: TEMP 97.7
[2018-08-20] MEDS ORDERED: cloNIDine HCL 0.1 MG TABLET PO PRN (14:37)
--- NOTE | 2018-08-20 14:40 | PN ---
[facility] CIWA - CIWA Score Nausea/Vomitin-Mild Nausea/No Vomiting Muscle Tremors: 3 Anxiety: 3 Agitation: 3 Paroxysmal Sweats: 3 Orientation: 0-Oriented Tacttile Disturbances: 0-None Auditory Disturbances: 0-None Visual Disturbances: 0-None Headache: 0-None Present CIWA-Ar Total Score: 13 S Progress Note (SOAP) Subjective: Profuse sweating, sensitivity to sunlight (mild), nausea Objective: 08/20/18 14:36 Last Vital Signs Temp Pulse Resp BP Pulse Ox 97.7 F 97 H 18 152/97 08/20/18 14:28 08/20/18 14:28 08/20/18 14:28 08/20/18 14:28 B/P elevated (denies htn) Laboratory Tests 08/20/18 08/20/18 08/20/18 07:30 07:30 07:30 WBC 4.4 RBC 4.78 Hgb 14.9 Hct 44.1 MCV 92.2 MCH 31.1 MCHC 33.7 RDW 13.8 Plt Count 134 D MPV 10.1 Sodium 143 Potassium 3.9 Chloride 107 Carbon Dioxide 30 Anion Gap 6 L BUN 12.7 Creatinine 0.8 Est GFR (CKD-EPI)AfAm 126.81 Est GFR (CKD-EPI)NonAf 109.41 Random Glucose 86 Calcium 8.5 Total Bilirubin 0.5 AST 32 ALT 36 Alkaline Phosphatase 80 Total Protein 6.4 Albumin 3.6 Urine Color Urine Appearance Urine pH Ur Specific [place] Urine Protein Urine Glucose (UA) Urine Ketones Urine Blood Urine Nitrite Urine Bilirubin Urine Urobilinogen Ur Leukocyte Esterase Urine WBC (Auto) Urine RBC (Auto) Urine Casts (Auto) U Epithel Cells (Auto) Urine Bacteria (Auto) RPR Titer Nonreactive 08/20/18 08:40 WBC RBC Hgb Hct MCV MCH MCHC RDW Plt Count MPV Sodium Potassium Chloride Carbon Dioxide Anion Gap BUN Creatinine Est GFR (CKD-EPI)AfAm Est GFR (CKD-EPI)NonAf Random Glucose Calcium Total Bilirubin AST ALT Alkaline Phosphatase Total Protein Albumin Urine Color Yellow Urine Appearance Clear Urine pH 7.5 Ur Specific [place] 1.029 Urine Protein 1+ H Urine Glucose (UA) Negative Urine Ketones Trace H Urine Blood Negative Urine Nitrite Negative Urine Bilirubin Negative Urine Urobilinogen 1.0 Ur Leukocyte Esterase Negative Urine WBC (Auto) 1 Urine RBC (Auto) 1 Urine Casts (Auto) 4 U Epithel Cells (Auto) 1.0 Urine Bacteria (Auto) 3.5 RPR Titer Labs reviewed: UA abnormal Assessment: 08/20/18 14:40 Withdrawal symptoms Noted with elevated blood pressure and abnormal UA Plan: Continue detox Encouraged PO water hydration Elevated b/p: most likely r/t withdrawal, start clonidine 0.1mg PO q8hr prn if b /p > 140/90 Abnormal UA: repeat UA
[2018-08-20 16:43] VITALS: BP 155/100
[2018-08-20 19:25] VITALS: PULSE 77
--- NOTE | 2018-08-20 19:27 | DS ---
[facility] Detox Discharge Summary Admission Date: 08/19/18 Discharge Date: 08/20/18 - History Additional Comments: Patient left against medical advice. Patient could not wait to be seen by a provider. As per the nurse, patient states that he had to go to work tomorrow Pertinent Past History: Alcohol related seizures, depression, thrombocytopenia, elevated LFTs, alcohol dependence, cocaine dependence, nicotine dependence - Physical Exam Results Vital Signs: Vital Signs Temperature 97.7 F 08/20/18 16:42 Pulse Rate 88 08/20/18 18:00 Respiratory Rate 18 08/20/18 18:00 Blood Pressure 155/100 08/20/18 16:42 O2 Sat by Pulse Oximetry (%) Laboratory Last Values WBC 4.4 K/mm3 (4.0-10.0) 08/20/18 07:30 RBC 4.78 M/mm3 (4.00-5.60) 08/20/18 07:30 Hgb 14.9 GM/dL (11.7-16.9) 08/20/18 07:30 Hct 44.1 % (35.4-49) 08/20/18 07:30 MCV 92.2 fl (80-96) 08/20/18 07:30 MCH 31.1 pg (25.7-33.7) 08/20/18 07:30 MCHC 33.7 g/dl (32.0-35.9) 08/20/18 07:30 RDW 13.8 % (11.9-15.9) 08/20/18 07:30 Plt Count 134 K/MM3 (134-434) D 08/20/18 07:30 MPV 10.1 fl (7.5-11.1) 08/20/18 07:30 Sodium 143 mmol/L (136-145) 08/20/18 07:30 Potassium 3.9 mmol/L (3.5-5.1) 08/20/18 07:30 Chloride 107 mmol/L (98-107) 08/20/18 07:30 Carbon Dioxide 30 mmol/L (21-32) 08/20/18 07:30 Anion Gap 6 MMOL/L (8-16) L 08/20/18 07:30 BUN 12.7 mg/dL (7-18) 08/20/18 07:30 Creatinine 0.8 mg/dL (0.55-1.3) 08/20/18 07:30 Est GFR (CKD-EPI)AfAm 126.81 08/20/18 07:30 Est GFR (CKD-EPI)NonAf 109.41 08/20/18 07:30 Random Glucose 86 mg/dL (74-106) 08/20/18 07:30 Calcium 8.5 mg/dL (8.5-10.1) 08/20/18 07:30 Total Bilirubin 0.5 mg/dL (0.2-1) 08/20/18 07:30 AST 32 U/L (15-37) 08/20/18 07:30 ALT 36 U/L (13-61) 08/20/18 07:30 Alkaline Phosphatase 80 U/L (45-117) 08/20/18 07:30 Total Protein 6.4 g/dl (6.4-8.2) 08/20/18 07:30 Albumin 3.6 g/dl (3.4-5.0) 08/20/18 07:30 Urine Color Yellow 08/20/18 08:40 Urine Appearance Clear 08/20/18 08:40 Urine pH 7.5 (5.0-8.0) 08/20/18 08:40 Ur Specific [place] 1.029 (1.010-1.035) 08/20/18 08:40 Urine Protein 1+ (NEGATIVE) H 08/20/18 08:40 Urine Glucose (UA) Negative (NEGATIVE) 08/20/18 08:40 Urine Ketones Trace (NEGATIVE) H 08/20/18 08:40 Urine Blood Negative (NEGATIVE) 08/20/18 08:40 Urine Nitrite Negative (NEGATIVE) 08/20/18 08:40 Urine Bilirubin Negative (NEGATIVE) 08/20/18 08:40 Urine Urobilinogen 1.0 mg/dL (0.2-1.0) 08/20/18 08:40 Ur Leukocyte Esterase Negative (NEGATIVE) 08/20/18 08:40 Urine WBC (Auto) 1 /hpf (0-5) 08/20/18 08:40 Urine RBC (Auto) 1 /hpf (0-4) 08/20/18 08:40 Urine Casts (Auto) 4 /lpf (0-8) 08/20/18 08:40 U Epithel Cells (Auto) 1.0 /HPF (0-5/HPF) 08/20/18 08:40 Urine Bacteria (Auto) 3.5 /hpf (NEGATIVE) 08/20/18 08:40 RPR Titer Nonreactive (NONREACTIVE) 08/20/18 07:30 Pertinent Admission Physical Exam Findings: Withdrawal symptoms - Medication Discharge Medications: Ambulatory Orders Gabapentin 800 mg PO DAILY 08/19/18 Omeprazole 20 mg PO DAILY 08/19/18 - Diagnosis (1) Alcohol dependence with uncomplicated withdrawal Current Visit: Yes Status: Acute (2) Cocaine dependence Current Visit: Yes Status: Acute (3) Depression Current Visit: Yes Status: Chronic Qualifiers: Depression Type: unspecified Qualified Code(s): F32.9 - Major depressive disorder, single episode, unspecified (4) Nicotine dependence Current Visit: Yes Status: Chronic Qualifiers: Nicotine product type: cigarettes Substance use status: uncomplicated Qualified Code(s): F17.210 - Nicotine dependence, cigarettes, uncomplicated (5) Alcohol related seizure Current Visit: Yes Status: Resolved (6) Elevated LFTs Current Visit: No Status: Acute (7) Thrombocytopenia Current Visit: No Status: Acute - AMA Did Patient Leave Against Medical Advice: Yes
[2018-08-20] MEDS ORDERED: THIAMINE HCL 100 MG TABLET (FP) PO SCH (22:00)
[2018-08-20] MEDS ORDERED: chlordiazePOXIDE HCL 25 MG CAPSULE PO SCH (23:00)
[2018-08-21] MEDS ORDERED: chlordiazePOXIDE HCL 10 MG CAPSULE PO SCH (23:00)
[2018-08-21] MEDS ORDERED: chlordiazePOXIDE HCL 10 MG CAPSULE PO PRN (23:00)
[2018-08-22] MEDS ORDERED: chlordiazePOXIDE HCL 10 MG CAPSULE PO SCH (23:00)
== END 2018-08-20 19:00 | disposition left against medical advice (07) | DRG 770 ==
LOC: YASAS 18:15 → Y6N 23:42
PROVIDERS: ADMIT Surgery; ATTEND Surgery
PROC: HZ2ZZZZ Detoxification Services for Substance Abuse Treatment (ICD-10-PCS; principal; 2018-08-19)
DX: F10.230 Alcohol dependence with withdrawal, uncomplicated (principal); F14.20 Cocaine dependence, uncomplicated; F17.210 Nicotine dependence, cigarettes, uncomplicated; F32.9 Major depressive disorder, single episode, unspecified; F19.24 Other psychoactive substance dependence with psychoactive substance-induced mood disorder; F19.280 Other psychoactive substance dependence with psychoactive substance-induced anxiety disorder; F19.282 Other psychoactive substance dependence with psychoactive substance-induced sleep disorder; R94.5 Abnormal results of liver function studies; D69.6 Thrombocytopenia, unspecified; R82.90 Unspecified abnormal findings in urine; K21.9 Gastro-esophageal reflux disease without esophagitis; R00.0 Tachycardia, unspecified; R63.8 Other symptoms and signs concerning food and fluid intake; Z86.69 Personal history of other diseases of the nervous system and sense organs; Z86.718 Personal history of other venous thrombosis and embolism
CPT/HCPCS: 36415; 80053; 81003; 85027; 86593